=== PATIENT | female | born 1935 | race Caucasian/White ===

== ENCOUNTER 2020-11-11 14:05 | Emergency (ER) | payer MEDICARE ==
[~2020-11-11] VITALS: Ht 154.9 cm; Wt 113.4 kg
[~2020-11-11 14:05] MED LIST: ASPI325EC PO; Aspir 8181 MG PO; CLOP75 PO; ESCI20 PO; FLUO20; FLUO20 PO; FURO20 PO; HYDACE5 PO; HYDACE5325 PO; HYDCHL25 PO; KETO10 PO; LOVA20; Lopressor PO; METO50 PO; METO50ER; OXYACE5T PO; OXYC10ER PO; Omeprazole20 M1; POTCHL10ER PO; POTCHL20ER; POTCHL20ER PO; RXHYD5325 PO; SIMV40 PO; TRIHYD253A PO; TRIHYD253B; VALS80 PO
[2020-11-11] MEDS ORDERED: DONE5 PO (14:17)
[2020-11-11] MEDS ORDERED: AMLO5 PO (14:17)
[2020-11-11] MEDS ORDERED: METO25 PO (14:17)
[2020-11-11] MEDS ORDERED: VALSARTAN-HCTZ1 EAC7 PO (14:18)
[2020-11-11] MEDS ORDERED: QUET25 PO (14:18)
[2020-11-11] MEDS ORDERED: ESCI20 PO (14:18)
[2020-11-11] MEDS ORDERED: POTCHL20ER PO (14:18)
[2020-11-11] MEDS ORDERED: CLOP75 PO (14:19)
[2020-11-11] MEDS ORDERED: FURO40 PO (14:19)
[2020-11-11] MEDS ORDERED: Ativan1 MG PO (14:19)
[2020-11-11] MEDS ORDERED: ALPR.25 PO (14:19)
[2020-11-11] MEDS ORDERED: OMEP20ER PO (14:20)
[2020-11-11] MEDS ORDERED: ASPI81CH PO (14:20)
[2020-11-11] MEDS ORDERED: ALLERCLEAR10 MG PO (14:21)
[2020-11-11 15:42] LABS: Source, Urine Clean Catch
[2020-11-11 15:50] LABS: Appearance, Urine Clear (Clear); Bilirubin, Urine Neg (Neg); Blood, Urine Neg (Neg); Color, Urine Yellow (P-Yellow); Glucose Qualitative, Urine Neg (Neg); Ketones, Urine Neg (Neg); Leukocyte Esterase, Urine 1+ (Neg); Nitrite, Urine Neg (Neg); Protein, Urine Neg (Neg); Urobilinogen, Urine NORM (Normal)
[2020-11-11 15:59] LABS: Bacteria Few /hpf; Red Blood Cells, Urine 0-2 /hpf (0-2); Squamous Epithelial Cells Rare /hpf (Few)
[2020-11-11 16:00] LABS: Amorphous Light (0-Heavy); Renal Epithelial Rare /hpf (0-Rare); Transitional Epithelial Cells Rare /hpf (0-Rare)
[2020-11-11 17:02] LABS: BASOPHILS ABSOLUTE AUTO 0.06 K/mm3 (0.00-0.23); BASOPHILS PERCENT AUTO 1 % (0-2); EOSINOPHILS ABSOLUTE AUTO 0.13 K/mm3 (0.00-0.68); EOSINOPHILS PERCENT AUTO 1 % (0-6); Hematocrit 34.9 % (33.0-51.0); Hemoglobin 11.7 g/dL (11.5-16.0); IMMATURE GRAN ABSOLUTE AUTO 0.04 K/mm3 (0.00-0.10); IMMATURE GRAN PERCENT AUTO 0 % (0-1); LYMPHOCYTES ABSOLUTE AUTO 2.47 K/mm3 (0.84-5.20); LYMPHOCYTES PERCENT AUTO 27 % (21-46); MONOCYTES ABSOLUTE AUTO 0.68 K/mm3 (0.16-1.47); MONOCYTES PERCENT AUTO 7 % (4-13); Mean Corpuscular HGB 33.1 pg (26.0-34.0); Mean Corpuscular HGB Conc 33.5 g/dL (31.5-36.5); Mean Corpuscular Volume 99 fL (80-100); Mean Platelet Volume 10.5 fL (9.1-12.4); NEUTROPHILS PERCENT AUTO 63 % (41-73); Platelet Count 247 K/mm3 (150-400); RDW Coefficient Variation 13.4 % (11.7-14.2); RDW Standard Deviation 48.7 fL (35.1-46.3); Red Blood Cell Count 3.54 M/mm3 (3.80-5.20); White Blood Cell Count 9.18 K/mm3 (4.00-11.30)
[2020-11-11 17:16] LABS: Albumin, Blood 3.9 g/dL (3.4-5.0); Bun/Creatinine Ratio 19.5 (12.0-20.0); Creatinine, Blood 1.49 mg/dL (0.40-1.00); Globulin, Blood 3.9 g/dL (2.2-4.0); Potassium, Blood 4.3 mmol/L (3.5-5.5); Total Protein, Blood 7.8 g/dL (6.4-8.2)
[2020-11-11] MEDS ORDERED: AMOCLA875 PO (19:18)
[2020-11-11] MEDS ORDERED: Norco 5-325 Ta1 EACH PO (19:18)
== END 2020-11-11 19:55 | disposition home or self-care (01) ==
LOC: ER 14:05
PROVIDERS: Physician Assistant
DX: K57.92 Diverticulitis of intestine, part unspecified, without perforation or abscess without bleeding (principal); I10 Essential (primary) hypertension; E78.5 Hyperlipidemia, unspecified; Z79.899 Other long term (current) drug therapy
CPT/HCPCS: 36415; 73502; 74177; 80053; 81001; 85025; 96374-59; 96375; 99284-25; A9270; J2270; J2405; J3010; Q9967

== ENCOUNTER 2021-01-19 15:59 | Observation (INO) | payer MEDICARE ==
[~2021-01-19] VITALS: Ht 162.6 cm; Wt 121.9 kg
[~2021-01-19 15:59] MED LIST changes: +ALLERCLEAR10 MG PO; +ALPR.25 PO; +AMLO5 PO; +AMOCLA875 PO; +ASPI81CH PO; +Ativan1 MG PO; +DONE5 PO; +FURO40 PO; +METO25 PO; +Norco 5-325 Ta1 EACH PO; +OMEP20ER PO; +QUET25 PO; +VALSARTAN-HCTZ1 EAC7 PO
[2021-01-19 16:31] LABS: BASOPHILS ABSOLUTE AUTO 0.05 K/mm3 (0.00-0.23); BASOPHILS PERCENT AUTO 1 % (0-2); EOSINOPHILS ABSOLUTE AUTO 0.15 K/mm3 (0.00-0.68); EOSINOPHILS PERCENT AUTO 2 % (0-6); Hematocrit 33.8 % (33.0-51.0); Hemoglobin 11.4 g/dL (11.5-16.0); IMMATURE GRAN ABSOLUTE AUTO 0.05 K/mm3 (0.00-0.10); IMMATURE GRAN PERCENT AUTO 1 % (0-1); LYMPHOCYTES ABSOLUTE AUTO 2.81 K/mm3 (0.84-5.20); LYMPHOCYTES PERCENT AUTO 27 % (21-46); MONOCYTES ABSOLUTE AUTO 0.91 K/mm3 (0.16-1.47); MONOCYTES PERCENT AUTO 9 % (4-13); Mean Corpuscular HGB Conc 33.7 g/dL (31.5-36.5); Mean Corpuscular Volume 98 fL (80-100); Mean Platelet Volume 10.2 fL (9.1-12.4); NEUTROPHILS ABSOLUTE AUTO 6.37 K/mm3 (1.96-9.15); NEUTROPHILS PERCENT AUTO 62 % (41-73); Platelet Count 274 K/mm3 (150-400); RDW Coefficient Variation 13.3 % (11.7-14.2); RDW Standard Deviation 48.4 fL (35.1-46.3); Red Blood Cell Count 3.45 M/mm3 (3.80-5.20); White Blood Cell Count 10.34 K/mm3 (4.00-11.30)
[2021-01-19 17:01] LABS: Alanine Aminotransfer (ALT/SGP 24 U/L (12-78); Albumin, Blood 3.3 g/dL (3.4-5.0); Albumin/Globulin Ratio 0.8 (0.8-1.8); Alk Phos 72 U/L (50-136); Anion Gap 8 mmol/L (6-16); Aspartate Aminotrans (AST/SGOT 37 U/L (12-37); Bilirubin, Total 0.6 mg/dL (0.1-1.0); Blood Urea Nitrogen 40 mg/dL (8-24); CO2, Blood 26 mmol/L (21-32); Calcium, Blood 8.7 mg/dL (8.5-10.1); Chloride, Blood 101 mmol/L (98-108); Creatinine, Blood 1.82 mg/dL (0.40-1.00); Globulin, Blood 4.4 g/dL (2.2-4.0); Glomerular Filtration Rate 28 (60-); Glucose, Blood 134 mg/dL (70-99); Magnesium, Blood 2.3 mg/dL (1.6-2.4); Potassium, Blood 4.8 mmol/L (3.5-5.5); Sodium, Blood 135 mmol/L (136-145); Total Protein, Blood 7.7 g/dL (6.4-8.2); Troponin I <0.015 ng/mL (0.000-0.040)
[2021-01-19 21:43] LABS: CHOL/HDL RATIO 7.8; Cholesterol 248 mg/dL (50-200); HDL Cholesterol 32 mg/dL (>39); LDL/HDL RATIO 5.2; Low Density Lipoprotein Chol 167 mg/dL (0-110); Triglycerides 245 mg/dL (30-160); Very Low Density Lipoprot Chol 49 mg/dL (6-32)
--- NOTE | 2021-01-20 04:56 | NUR ---
SUMMARY PT ARRIVED TO FLOOR IN NO DISTRESS. PT DENIES CX PAIN OR SOB. PT IS AOX3, FORGETFUL AT TIMES. PT HAS BEEN SLEEPING W/ CPAP. PT CURRENTLY SLEEPING AND IN NO DISTRESS. CALL LIGHT IN REACH AND BED ALARM ON.
[2021-01-20 06:39] LABS: BASOPHILS ABSOLUTE AUTO 0.05 K/mm3 (0.00-0.23); BASOPHILS PERCENT AUTO 1 % (0-2); EOSINOPHILS ABSOLUTE AUTO 0.23 K/mm3 (0.00-0.68); EOSINOPHILS PERCENT AUTO 3 % (0-6); Hematocrit 32.8 % (33.0-51.0); Hemoglobin 10.9 g/dL (11.5-16.0); IMMATURE GRAN ABSOLUTE AUTO 0.03 K/mm3 (0.00-0.10); IMMATURE GRAN PERCENT AUTO 0 % (0-1); LYMPHOCYTES ABSOLUTE AUTO 3.05 K/mm3 (0.84-5.20); LYMPHOCYTES PERCENT AUTO 37 % (21-46); MONOCYTES ABSOLUTE AUTO 0.79 K/mm3 (0.16-1.47); MONOCYTES PERCENT AUTO 10 % (4-13); Mean Corpuscular HGB Conc 33.2 g/dL (31.5-36.5); Mean Corpuscular Volume 99 fL (80-100); NEUTROPHILS ABSOLUTE AUTO 4.18 K/mm3 (1.96-9.15); NEUTROPHILS PERCENT AUTO 50 % (41-73); Platelet Count 255 K/mm3 (150-400); RDW Coefficient Variation 13.4 % (11.7-14.2); RDW Standard Deviation 48.5 fL (35.1-46.3); White Blood Cell Count 8.33 K/mm3 (4.00-11.30)
[2021-01-20 06:54] LABS: Bun/Creatinine Ratio 21.2 (12.0-20.0); Calcium, Blood 8.5 mg/dL (8.5-10.1); Creatinine, Blood 1.7 mg/dL (0.40-1.00)
--- NOTE | 2021-01-20 17:30 | NUR ---
SHIFT SUMMARY NO ACUTE CHANGES NOTED TO PATIENT THIS SHIFT. PT IS A&OX3, FORGETFUL AT TIMES, ABLE TO MAKE NEEDS KNOWN, PLEASANT AND COOPERATIVE TO CARE. PT IS [place]. NO C/O PAIN OR ANY DISCOMFORT THIS SHIFT. NO C/O CHEST PAIN, SOB, OR N&V. PT ZIOPATCH TO LUCW DISCONTINUED THIS SHIFT ORDERED BY DR. KING. ZIOPATCH GIVEN TO PT's SON TO BE MAILED. PT REQUIRES 1 SBA WITH FWW TO BATHROOM. NO C/O DYSURIA. BED AT LOWEST POSITION W/ ALARM ON FOR SAFETY. CALL LIGHT WITHIN REACH. PT's SON AT BEDSIDE THIS AFTERNOON.
--- NOTE | 2021-01-20 19:30 | NUR ---
ASSUMED CARE. SON AT BEDSIDE. RECEIVED CALL FROM HAND CLOTH CUTTER REPORTING HR 130. PATIENT FOUND LAYING IN BED. JUST GOTTEN UP TO BATHROOM. DENIED ANY CURRENT CHEST PAIN OR SOB. SON REPORTED THAT THESE SYMPTOMS AND IRREGULARITIES HAVE BEEN GOING ON FOR SOME TIME. SHE COULD BE SITTING AND NOT MOVING AT HOME AND HER BLOOD PRESSURE WILL BE NORMAL AND 10 MINUTES LATER IT WILL GO UP INTO THE 200'S. THE SAME GOES FOR HER HR. SHE DOES GET VERY LIGHTHEADED, PALE, AND OCCATIONAL CHEST TIGHTNESS. TELE IS MONITORING FOR CHANGES, SHE WAS IN AFIB LAST NIGHT. SON GIVEN ZIO PATCH TO SEND BACK. PATIENT CURRENTLY BRADICARDIC AT 59. NO EDEMA. BED ALARM PLACED DUE TO HIGH POTTER SCORE. CALL LIGHT IS IN REACH.
--- NOTE | 2021-01-21 03:06 | NUR ---
MERE WOKE UP VERY SCARED AND FRIGHTEN TO THE POINT OF SHAKING AND INCREASE IN BREATHING. DID NOT REMEMBER WHERE SHE WAS AT OR ANYTHING OVER THE LAST DAY. SHE WAS SCREAMING OUT FOR HER SON ISAIAS WHO LEFT EARLIER THIS NIGHT. SHE KEPT ON SAYING "THIS IS NOT REAL, HOW CAN I KNOW THIS IS REAL". CALLED HER SON WHO SHE DID NOT EVEN BELEIVE IT WAS HER SON UNTIL HE TOLD HER SOMETHING ONLY HE COULD KNOW. GOT HER SLIGHTLY CALM BUT HER BP WAS ELEVATED TO THE 160'S DUE TO THIS. SON SAID SHE DOES SUNDOWN BUT NEVER LIKE THIS. HE ASKED ABOUT HER CELEXA DID SHE GET IT BEFORE BED. APPARENTLY IT WAS GIVEN IN THE MORNING, CHANGED THE TIME TO PM PER HIS REQUEST. GAVE HER XANAX TO HELP CALM DOWN. BED ALARM IS ON, WILL CONITNUE TO MONITOR.
--- NOTE | 2021-01-21 06:09 | NUR ---
SHIFT SUMMARY: AOX3 BUT HAS SUNDOWNERS AT NIGHT. WOKE UP COMPLETE CONFUSION, DIDN'T EVEN BELIEVE HER SON WAS HER SON UNTIL HE TOLD HER SOMETHING HE WOULD ONLY KNOW. SHE KEPT THINKING SHE WAS IN A DREAM. DID NOT WEAR HER CPAP LAST NIGHT SATS REMAINED GREATER THAN 90%. BP ALL OVER THE PLACE FROM 112 TO 160'S WITH HR THAT HIT A HIGH OF 130'S DOWN TO LOWS OF HIGH 40'S. SOB WITH EXERTION. DOES HAVE OCCATIONAL TINGLING IN THE LEFT ARM AND HAND. SOME CHEST PRESSURE THAT COMES AND GOES. ALSO REPORTED SOME DIZZINESS. DID GIVE XANAX FOR ANXIETY X1. BED ALARM IS ON, CALL LIGHT IS IN REACH. WILL CONTINUE TO MONITOR.
--- NOTE | 2021-01-21 14:33 | NUR ---
Met pt. in bed resting she repots to be doing much better encouraged pt. and offered prayers
--- NOTE | 2021-01-21 18:44 | NUR ---
PATIENT A/OX2-3 TODAY, PER REPORT DOES GET VERY CONFUSED AT NIGHT. HR UP TO THE 130'S WITH ACTIVITY AND PATIENT REPORTS DIZZINESS AND PAIN IN THE L SIDE OF HER HEAD WITH ACTIVITY. ORHOSTATICS TAKEN AND PRESSURES AND HR WENT UP WITH STANDING. 1ST PART OF STRESS TEST TODAY, 2ND PART WILL BE TOMORROW AT 1000. PATIENT TO BE NPO AT MIDNIGHT EXCEPT WATER. FALL PRECAUTIONS IN PLACE, PATIENT ABLE TO MAKE NEEDS KNOWN. AMBULATES WITH FWW AND 1 ASSIST.
--- NOTE | 2021-01-22 06:30 | NUR ---
SHIFT SUMMARY: CONTINUED TO HAVE IRREGULAR RHYTHEMS LAST NIGHT. HAD TWO EPISODES OF SVT LONGEST WAS 1 MIN. THEN SHE RETURNED TO SINUS OMAIRA. HR BOUNCES FROM RHYTHEM TO RHYTHEM WITH NO CONSISTENCY OR PATTERN. SHE COULD BE LAYING IN BED AND BE 130 BPM THEN 30 SECONDS LATER BE OMAIRA IN THE 50'S. SHE DOES GET TACHY WITH EXERTION. SOB NOTED. LUNGS DIMINISHED. BLOOD PRESSURE IS ALSO INCONSISTENT WITH HIGHS UP TO 180'S THEN A MINUTES LATER BACK DOWN TO 140'S. THERE ARE TIMES SHE HAS SYMPTOMS SUCH LIGHTHEADNESS, FUZZINESS, AND FEELING SOME DECREASE IN SENSATION TO HER LEGS. SHE ALSO HAS NUMBNESS OF THE LEFT HAND THAT COMES AND GOES FREQUENTLY. WILL CONTINUE TO MONITOR. CALL LIGHT IS IN REACH.
--- NOTE | 2021-01-22 17:27 | NUR ---
SHIFT SUMMARY PT A&O X2 PLEASENT AND COOPERATIVE. NO ACUTE CHANGES THIS SHIFT. STRESS TEST COMPLETED. PTS SON IN THIS EVENING- DR BARNHART CAME AND DISCUSSED TEST RESULTS AND PLAN WITH SON AND THE PT. VSS. PTS HR SINUS IN THE 60'S AT THIS TIME. PIPE FITTER SOFT COPPER REPORTS PT WAS TACHY AT 111 AT ONE POINT TODAY WHEN PT GOT UP. PT OOB FOR MEALS. UP 1 ASSIST WITH FWW. OCC INCONT WITH PULLUPS IN PLACE. PLAN: AWAITING CARDIOLOGY RECOMENDATION.
--- NOTE | 2021-01-23 06:27 | NUR ---
SHIFT SUMMARY: PATIENT HAD TWO EPISODES OF SVT RANGING UP TO 120 AND 140 BPM. THIS OCCURRED WHEN SHE WAS RUSHING TO THE BATHROOM. ONCE IN BED IT RESOLVED. NO OTHER EPISODES NOTED. SHE DOES HAVE PANIC ATTACKS THAT CONTRIBUTE TO THE TACHYCARDIA. SLEPT WELL WITH HER CPAP ON. BLOOD PRESSURE WS WNL. NO OTHER CHANGES TO NOTE THIS SHIFT. CALL LIGHT IS IN REACH.
--- NOTE | 2021-01-23 16:30 | NUR ---
SHIFT SUMMARY PT HAVING TACHYCARDIA RANGING FROM 110S-130S TODAY WITH EXERTION. GENERALLY AFTER AMBULATING TO THE BATHROOM AND BACK TO BED. PT RECOVERS QUICKLY AFTER RESTING IN BED. PT STARTED ON AMIODARONE TODAY PER DR. KING'S ORDER. TOLERATING WELL SO FAR WITHOUT SYMPTOMATIC BRADYCARDIA. HR CURRENTLY AT 62 PER BI REPORT DEVELOPER. VS REVIEWED. NO OTHER ACUTE CHANGES IN ASSESSMENT AT THIS TIME. PT RESTING IN BED. CALL LIGHT IN REACH. DENIES OTHER NEEDS AT THIS TIME.
--- NOTE | 2021-01-24 04:27 | NUR ---
SUMMARY PT DENIES CX PAIN OR SOB. PT HAS BEEN SLEEPING W/ CPAP T/O SHIFT. NO NEW ISSUES NOTED. PT WAS NOTED TO BE ST @ 120'S AT BEGINNING OF SHIFT. THIS AM PT IS SB IN 50'S. CALL LIGHT IN REACH AND BED ALARM ON.
--- NOTE | 2021-01-24 16:47 | NUR ---
SHIFT SUMMARY PT CONTINUES TO HAVE TACHYCARDIC EPISODES WITH EXERTION. AVERAGING IN THE 110-120S PER SENIOR ACCOUNT CLERK. RESOLVED WITH REST. NO SIGNS OF SYMPTOMATIC BRADYCARDIA TODAY. PT SHOWERED WITH HELP FROM THE AIDE. NO OTHER ACUTE CHANGES IN ASSESSMENT AT THIS TIME. VS REVIEWED. PT CURRENTLY RESTING IN BED. CALL LIGHT IN REACH. PT TALKING TO FAMILY ON THE PHONE.
--- NOTE | 2021-01-24 18:56 | NUR ---
CHEST PAIN PT STARTED C/O CHEST PAIN AT 1845. PT DESCRIBED THE PAIN 2-3/10. SHARP AT TIMES, BUT MOSTLY DULL. PT STATES PAIN DOES NOT INCREASE WITH MOVEMENT OR BREATHING. PT STATES N/T TO L HAND, BUT ALSO PREVIOUSLY C/O THIS EARLIER IN THE DAY. VITALS TAKEN. MUSICAL INSTRUMENT MECHANIC REPORTED PT WAS IN SINUS AT 68 WITH PVCS. THE PVCS ARE NEW FROM EARLIER TODAY. DR. CANO NOTIFIED. STAT TROPONIN ORDERED.
--- NOTE | 2021-01-24 22:02 | NUR ---
SON VISITING AT , AFFECT SOMEWHAT LABILE, PT VOICED RECENT PASSING OF HER OF 66 YRS. NURSE TALKED WITH PT, PT AFFECT SEEMED TO IMPROVE. WILL CONTINUE TO MONITOR. CALL LIGHT IN REACH
--- NOTE | 2021-01-25 03:45 | NUR ---
ACCOUNTING TUTOR SUMMARY HAS BEEN RESTING QUIETLY WITH FEW INTERRUPTIONS SINCE HS. MED TELE CONTINUES. NO C/O CHEST PAIN OF THIS WRITING. CALL LIGHT IN REACH
[2021-01-25 08:28] LABS: Bun/Creatinine Ratio 23.2 (12.0-20.0); Calcium, Blood 8.7 mg/dL (8.5-10.1); Creatinine, Blood 1.98 mg/dL (0.40-1.00); Potassium, Blood 3.4 mmol/L (3.5-5.5)
--- NOTE | 2021-01-25 16:59 | NUR ---
Shift Summary A/Ox3, occ forgetfulness. Pleasant and cooperative. Spent some time in room with patient reminiscing about her past and her late , patient was very appreciative, tearful, and still grieving about the of her 92 year old who approx. 8 months ago. Up with SBA/FWW to bathroom, calls appropriately for needs. Daughter was at the bedside during visiting hours, updated son via phone. HR per tele runs between 56-108. Denies pain, nausea, vomiting, diarrhea. Appetite is good. No acute changes, WCTM.
--- NOTE | 2021-01-25 22:35 | NUR ---
AWAKE EARLIER. WATCHING TV, DENIED PAIN, NO NOTED ACUTE DISTRESS. CALL LIGHT IN REACH. AFFECT CHEERFUL.
--- NOTE | 2021-01-25 22:51 | NUR ---
MED DERRICK OPERATOR CALLED WITH HR 126. UPON ASSESSMENT IN ROOM, PT UP TO BATHROOM AND A LITTLE "DIZZY". ASSISTED BACK TO BED, INSTRUCTED TO USE CALL LIGHT PRIOR TO ANY MORE OUT OF BED ACTIVITIES. CALL LIGHT IN REACH. TELE BACK DOWN TO SINUS AT 81 AFTERWARDS
--- NOTE | 2021-01-26 04:53 | NUR ---
FIREWORKS INSPECTOR SUMMARY HAS BEEN RESTING QUIETLY WITH FEW INTERRUPTIONS SINCE HS. GLAZE CARRIER REPORTED A QUICK INCREASE HR TO 126 EARLIER, UPON ARRIVEAL/ASSESSMENT WAS FOUND IN BTHROOM WITH SLIGHT "DIZZINESS" AND ASSISTED BACK TO BED. WAS INSTRUCTED TO USE CALL LIGHT PRIOR TO ANY MORE OUT OF BED ACTIVITIES. HAS BEEN RESTING QUIETLY WITH HR IN THE 80'S SINCE. CALL LIGHT IN REACH. NO C/O CP THIS SHIFT
[2021-01-26] MEDS ORDERED: PACERONE100 M1 PO (12:23)
[2021-01-26] MEDS ORDERED: ATOR40TA PO (12:23)
[2021-01-26] MEDS ORDERED: PANTOPRAZOLE SO40 M2 PO (12:24)
[2021-01-26] MEDS ORDERED: METO25ER PO (13:18)
--- NOTE | 2021-01-26 16:20 | NUR ---
Discharge Summary AOx3, forgetful. Discharge to home. Reviewed d/c paperwork with patient and son Regino at bedside. Questions answered to their satisfaction. Copy of d/c papers given. Meds faxed to [facility]. Had issues with getting Amiodarone 400mg filled per [facility], dose changed to 200mg and was resent for approval by insurance. This was accepted. Dr. Hinson gave T.O. to change dose from #30 of 400mg to 200mg. Personal belongings sent home. Escorted by [facility] ARCHITECT via w/c. IV removed, WNL. Medicated x 1 for anxiety this shift. Also c/o burning pain in legs and fearful of falling. 1p SBA with gait and FWW to bathroom. Up in chair for all meals this shift. Patient appears to be more emotional today than yesterday because of health decline. Therapeutic listening and discussion made with patient.
== END 2021-01-26 16:24 | disposition home or self-care (01) ==
LOC: ER 15:59 → MEDS 16:00
PROVIDERS: Internal Medicine; Student in an Organized Health Care Education/Training Program; ADMIT Family Medicine
DX: I49.5 Sick sinus syndrome (principal); I25.10 Atherosclerotic heart disease of native coronary artery without angina pectoris; R79.1 Abnormal coagulation profile; I12.9 Hypertensive chronic kidney disease with stage 1 through stage 4 chronic kidney disease, or unspecified chronic kidney disease; N17.9 Acute kidney failure, unspecified; N18.30 Chronic kidney disease, stage 3 unspecified; E11.22 Type 2 diabetes mellitus with diabetic chronic kidney disease; G47.33 Obstructive sleep apnea (adult) (pediatric); E78.5 Hyperlipidemia, unspecified; F03.90 Unspecified dementia, unspecified severity, without behavioral disturbance, psychotic disturbance, mood disturbance, and anxiety; F41.9 Anxiety disorder, unspecified; F32.9 Major depressive disorder, single episode, unspecified; E87.1 Hypo-osmolality and hyponatremia; K21.9 Gastro-esophageal reflux disease without esophagitis; E66.01 Morbid (severe) obesity due to excess calories; Z68.34 Body mass index [BMI] 34.0-34.9, adult; Z95.5 Presence of coronary angioplasty implant and graft
CPT/HCPCS: 36415; 71045; 78452; 78580; 80048; 80053; 80061; 83735; 83880; 84484; 85025; 85379; 93005; 93010; 93017; 93306; 93970; 94660; 94760; 94762; 96360; 96361; 96372; 99285-25; A9270; A9500; A9540; C9113; G0378; J0706; J1650; J2785; J7030

== ENCOUNTER → 2021-03-05 | Outpatient (CLI) | payer MEDICARE ==
[~2021-03-05] MED LIST changes: +ATOR40TA PO; +METO25ER PO; +PACERONE100 M1 PO; +PANTOPRAZOLE SO40 M2 PO
[2021-03-05 16:27] LABS: Albumin, Blood 3.8 g/dL (3.4-5.0); Anion Gap 5 mmol/L (6-16); Blood Urea Nitrogen 20 mg/dL (8-24); CO2, Blood 29 mmol/L (21-32); Chloride, Blood 106 mmol/L (98-108); Creatinine, Blood 1.43 mg/dL (0.40-1.00); Free Thyroxine 0.92 ng/dL (0.70-1.60); Glomerular Filtration Rate 35 (60-); Glucose, Blood 101 mg/dL (70-99); Phosphorus, Blood 3.6 mg/dL (2.5-4.9); Potassium, Blood 3.9 mmol/L (3.5-5.5); Sodium, Blood 140 mmol/L (136-145)
== END ==
LOC: LAB 10:00 → LAB SHORT 10:00
PROVIDERS: Family Medicine
DX: E03.9 Hypothyroidism, unspecified (principal); N18.4 Chronic kidney disease, stage 4 (severe); R79.89 Other specified abnormal findings of blood chemistry
CPT/HCPCS: 80069; 82533; 84439; 84443; 84481

== ENCOUNTER 2022-03-29 13:09 | Emergency (ER) | payer MEDICARE ==
[~2022-03-29] VITALS: Ht 162.6 cm; Wt 124.7 kg
[~2022-03-29 13:09] MED LIST changes: +CEFD300 PO; +Prozac40 MG PO
[2022-03-29] MEDS ORDERED: CEFDINIR300 M4 PO (13:21)
[2022-03-29 13:51] LABS: BASOPHILS ABSOLUTE AUTO 0.07 K/mm3 (0.00-0.23); BASOPHILS PERCENT AUTO 1 % (0-2); EOSINOPHILS ABSOLUTE AUTO 0.12 K/mm3 (0.00-0.68); EOSINOPHILS PERCENT AUTO 2 % (0-6); Hemoglobin 12.9 g/dL (11.5-16.0); IMMATURE GRAN ABSOLUTE AUTO 0.03 K/mm3 (0.00-0.10); IMMATURE GRAN PERCENT AUTO 0 % (0-1); LYMPHOCYTES ABSOLUTE AUTO 2.27 K/mm3 (0.84-5.20); LYMPHOCYTES PERCENT AUTO 29 % (21-46); MONOCYTES ABSOLUTE AUTO 0.62 K/mm3 (0.16-1.47); MONOCYTES PERCENT AUTO 8 % (4-13); Mean Corpuscular HGB 31.9 pg (26.0-34.0); Mean Corpuscular HGB Conc 33.1 g/dL (31.5-36.5); Mean Corpuscular Volume 97 fL (80-100); Mean Platelet Volume 10.9 fL (9.1-12.4); NEUTROPHILS ABSOLUTE AUTO 4.77 K/mm3 (1.96-9.15); NEUTROPHILS PERCENT AUTO 61 % (41-73); Platelet Count 239 K/mm3 (150-400); RDW Coefficient Variation 14.1 % (11.7-14.2); RDW Standard Deviation 50.4 fL (35.1-46.3); Red Blood Cell Count 4.04 M/mm3 (3.80-5.20); White Blood Cell Count 7.88 K/mm3 (4.00-11.30)
[2022-03-29 14:11] LABS: Albumin, Blood 3.7 g/dL (3.4-5.0); Bilirubin, Total 0.8 mg/dL (0.1-1.0); Bun/Creatinine Ratio 17.7 (12.0-20.0); Calcium, Blood 9.4 mg/dL (8.5-10.1); Creatinine, Blood 1.41 mg/dL (0.40-1.00); Globulin, Blood 3.6 g/dL (2.2-4.0); Potassium, Blood 4.4 mmol/L (3.5-5.5); Total Protein, Blood 7.3 g/dL (6.4-8.2)
[2022-03-29 14:41] LABS: Source, Urine Straight Cath
[2022-03-29 14:44] LABS: Appearance, Urine Clear (Clear); Bilirubin, Urine Neg (Neg); Blood, Urine 5+ (Neg); Color, Urine Yellow (P-Yellow); Glucose Qualitative, Urine Neg (Neg); Ketones, Urine Neg (Neg); Leukocyte Esterase, Urine Neg (Neg); Nitrite, Urine Neg (Neg); Protein, Urine 2+ (Neg); Specific Gravity, Urine 1.015 (1.003-1.022); Urobilinogen, Urine NORM (Normal)
[2022-03-29 14:52] LABS: White Blood Cells, Urine 0-2 /hpf (0-5)
[2022-03-29 14:53] LABS: Bacteria Few /hpf; Red Blood Cells, Urine 25-50 /hpf (0-2); Squamous Epithelial Cells Few /hpf (Few); Transitional Epithelial Cells Rare /hpf (0-Rare)
[2022-03-29 16:15] LABS: Free Thyroxine 1.21 ng/dL (0.70-1.60)
[2022-03-29 16:16] LABS: Thyroid Stimulating Hormone 1.84 uIU/mL (0.360-4.800)
== END 2022-03-29 18:59 | disposition home or self-care (01) ==
LOC: ER 13:09
PROVIDERS: Emergency Medicine
DX: F03.90 Unspecified dementia, unspecified severity, without behavioral disturbance, psychotic disturbance, mood disturbance, and anxiety (principal); R45.1 Restlessness and agitation; I10 Essential (primary) hypertension; E78.5 Hyperlipidemia, unspecified; Z95.5 Presence of coronary angioplasty implant and graft; Z79.899 Other long term (current) drug therapy; Z79.02 Long term (current) use of antithrombotics/antiplatelets
CPT/HCPCS: 36415; 70450; 80053; 81001; 82140; 84439; 84443; 85025

== ENCOUNTER 2022-03-31 20:17 | Inpatient (IN) | payer MEDICARE ==
[~2022-03-31] VITALS: Ht 160 cm; Wt 118.4 kg
[~2022-03-31 20:17] MED LIST changes: +CEFDINIR300 M4 PO
[2022-03-31 23:33] LABS: BASOPHILS ABSOLUTE AUTO 0.08 K/mm3 (0.00-0.23); BASOPHILS PERCENT AUTO 1 % (0-2); EOSINOPHILS ABSOLUTE AUTO 0.15 K/mm3 (0.00-0.68); EOSINOPHILS PERCENT AUTO 1 % (0-6); Hematocrit 37.2 % (33.0-51.0); Hemoglobin 12.2 g/dL (11.5-16.0); IMMATURE GRAN ABSOLUTE AUTO 0.03 K/mm3 (0.00-0.10); IMMATURE GRAN PERCENT AUTO 0 % (0-1); LYMPHOCYTES ABSOLUTE AUTO 2.74 K/mm3 (0.84-5.20); LYMPHOCYTES PERCENT AUTO 25 % (21-46); MONOCYTES ABSOLUTE AUTO 0.86 K/mm3 (0.16-1.47); MONOCYTES PERCENT AUTO 8 % (4-13); Mean Corpuscular HGB 32.2 pg (26.0-34.0); Mean Corpuscular HGB Conc 32.8 g/dL (31.5-36.5); Mean Corpuscular Volume 98 fL (80-100); Mean Platelet Volume 10.3 fL (9.1-12.4); NEUTROPHILS ABSOLUTE AUTO 7.28 K/mm3 (1.96-9.15); NEUTROPHILS PERCENT AUTO 65 % (41-73); Platelet Count 223 K/mm3 (150-400); RDW Coefficient Variation 14.2 % (11.7-14.2); RDW Standard Deviation 51.5 fL (35.1-46.3); Red Blood Cell Count 3.79 M/mm3 (3.80-5.20); White Blood Cell Count 11.14 K/mm3 (4.00-11.30)
[2022-03-31 23:52] LABS: Source, Urine Fem Cath
[2022-03-31 23:57] LABS: Alanine Aminotransfer (ALT/SGP 85 U/L (12-78); Albumin, Blood 3.4 g/dL (3.4-5.0); Alk Phos 71 U/L (50-136); Anion Gap 9 mmol/L (6-16); Aspartate Aminotrans (AST/SGOT 53 U/L (12-37); Bilirubin, Total 0.6 mg/dL (0.1-1.0); Blood Urea Nitrogen 29 mg/dL (8-24); Bun/Creatinine Ratio 18.4 (12.0-20.0); CO2, Blood 27 mmol/L (21-32); Calcium, Blood 8.7 mg/dL (8.5-10.1); Chloride, Blood 107 mmol/L (98-108); Creatinine, Blood 1.58 mg/dL (0.40-1.00); Ethanol (Alcohol), Blood, Med <3 mg/dL; Globulin, Blood 3.5 g/dL (2.2-4.0); Glomerular Filtration Rate 32 (60-); Glucose, Blood 108 mg/dL (70-99); Magnesium, Blood 2.1 mg/dL (1.6-2.4); Potassium, Blood 3.9 mmol/L (3.5-5.5); Salicylate <1.7 mg/dL (2.8-20.0); Sodium, Blood 143 mmol/L (136-145); Total Protein, Blood 6.9 g/dL (6.4-8.2)
[2022-03-31 23:58] LABS: Acetaminophen, Random <2.0 ug/mL (10.0-30.0)
[2022-04-01 00:19] LABS: Appearance, Urine Clear (Clear); Bilirubin, Urine Neg (Neg); Blood, Urine Neg (Neg); Color, Urine Yellow (P-Yellow); Glucose Qualitative, Urine Neg (Neg); Ketones, Urine Neg (Neg); Leukocyte Esterase, Urine Neg (Neg); Nitrite, Urine Neg (Neg); Protein, Urine Neg (Neg); Specific Gravity, Urine 1.015 (1.003-1.022); Urobilinogen, Urine NORM (Normal)
[2022-04-01 00:36] LABS: U Amphetamine Screen Not Detected; U Barbituate Screen Not Detected; U Benzodiazapine Screen DETECTED; U Buprenorphine Screen Not Detected; U Cannabinoids Screen Not Detected; U Cocaine Screen Not Detected; U Methadone Screen Not Detected; U Methamphetamine Screen Not Detected; U Opiates Screen Not Detected; U Oxycodone Screen Not Detected; U Phencyclidine Screen Not Detected; U Propoxyphene Screen Not Detected
--- NOTE | 2022-04-01 18:25 | NUR ---
Shift Summary Arrived from ER around noon. A/O to self, family, and hospital. Extremely forgetful, confused (this is baseline). Denies SI claiming, "I would never do that, I am a Confucianism and it's against my beliefs." Very anxious when son was leaving home to get her CPAP and a pair of discharge clothes. Med rec and history not completed because patient is a poor historian. Son will be bringing in med list and can answer questions for history at that time. RAC IV, saline locked. Easily redirectable. Denies pain. 1p FWW to bedside commode/chair and back to bed.
[2022-04-01] MEDS ORDERED: VALS80 PO (18:44)
[2022-04-01] MEDS ORDERED: DOCU100 PO (18:45)
[2022-04-01] MEDS ORDERED: Cranberry400 MG PO (18:45)
[2022-04-01] MEDS ORDERED: Hair, Skin & N1 EACH PO (18:46)
[2022-04-01] MEDS ORDERED: C COMPLEX1000 M1 PO (18:46)
[2022-04-01] MEDS ORDERED: VITAMIN D5000 UNIT PO (18:46)
[2022-04-01] MEDS ORDERED: Calcium Ascorb500 MG PO (18:47)
[2022-04-01] MEDS ORDERED: MIRALAX1713 PO (18:58)
[2022-04-01] MEDS ORDERED: METAMUCIL POWD798 GM PO (18:59)
--- NOTE | 2022-04-02 06:34 | NUR ---
SUMMARY: PT A/OX2-3, IS PLEASAT AND COOPERATIVE W/CARE AND IS ABLE TO SPECIFY NEEDS. SHE REMAINS ON 2MD HOLD IN MODERATE SI PRECAUTIONS W/1:[address] BUT PT EXPRESSES NO CURRENT SI OR THREAT TO SELF. SHE'S UP W/1PA TO TOILET FOR VOID AND BM THIS AM AND HAD PUREWIC IN PLACE T/O NOCTE FOR FREQ URGE INCONTINENCE. PT'S NOW IN RECLINER AGAIN AND DENIES FEELING NEED FOR PUREWIC WHILE AWAKE. SHE TOLERATES RA AND CPAP AT HS W/SPO2 WNL AND NO S/S RESP DISTRESS. NO ACUTE CHANGES, VSS/AFEBRILE. WCTM AND REPORT TO DAY RN.
--- NOTE | 2022-04-02 10:15 | NUR ---
Spiritual care visit conducted upon receipt of spiritual care referral. Pt immediately tells me about the of her spouse, Ellis. She can't remember when he did but agreed it was in the last 2 yrs. She states that she cries and gets angry about his . She says, "People think I am crazy because I cry and throw fits, but I am gireiving. I'm agry because Ellis is gone and so sad to have to live without him." She states that they had been for 65 yrs and she is thankful for the good memories, the love they had for each other and for the honest and kind person that he was." We talk about grief having it's place but needing to watch it's levels for when it overflows to cause harm to self or others. We explore sources of meaning and value and talk about positive ways to approach the work of bereavement. She talks about having good family support (children; 5 girls and 2 boy) and solid friend support. She shares about how her and Ellis where baptized Mormon. I normalize her grief, encourage self-care and provide therapeutic listening, gentle certified credit counselor, grief support and prayer. Pt responds well and shows signs of elevated hope and catharsis. I will continue to remain available to pt and family.
--- NOTE | 2022-04-02 11:04 | NUR ---
PATIENT ADMITS SHE IS DEPRESSED AND WISHED SHE WERE ALONG WITH HER . NO CURRENT SI. PATIENT IS CALM, TALKATIVE WITH STAFF AND PLEASANT
--- NOTE | 2022-04-02 18:41 | NUR ---
PATIENT IS ALERT. THIS MORNING SHE WAS CALM AND COOPERATIVE WITH CARE AND THIS AFTERNOON SHE BECAME ANXIOUS, CONFUSED AND AGITATED. SHE WAS DENYING SI MOST OF THE SHIFT BUT SHE WAS STATING THAT SHE WANTED TO THIS AFTERNOON. DR. GARDNER NOTIFIED AND HE CALLED DR. WAGGONER WHO THEN ORDERED PRN ATIVAN. THE PATIENT IS CALMING DOWN AT THIS TIME. HER SON HAS BEEN AT THE BEDSIDE. 1:1 SITTER IN THE ROOM WITH THE PATIENT TALKING WITH HER. WILL CONTINUE TO MONITOR
--- NOTE | 2022-04-03 03:59 | NUR ---
SUMMARY: PT A/O TO SELF, FAMILY AND SURROUNDINGS. SHE'S BEEN PLEASANT AND COOPERATIVE W/CARE AND UP W/1PA TO TOILET. PT REMAINS ON 2MD HOLD FOR MODERATE SI W/1:1 SITTER PRESENT BUT HAS EXPRESSED NONE THIS SHIFT AND DENIES INTENTION OF SELF HARM. DC'D PSYCH MEDS D/T POSSIBLE QT PROLONGATION BUT NO ANXIETY OR AGGITATION WAS EXHIBITED THIS SHIFT SO PRN ATIVAN WASN'T NEEDED. PT SLEPT MAJORITY OF SHIFT IN RECLINER AND AWOKE IN GOOD SPIRITS. NO ACUTE CHANGES, VSS/AFEBRILE. PT'S SON HOPES TO DISCUSS CARE PLAN W/ TODAY, WILL ENSURE DAY STAFF HELPS ARRANGE THIS MEETING. WCLINDSAY AND REPORT TO DAY RN.
--- NOTE | 2022-04-03 18:58 | NUR ---
shift summary PT HAS BEEN TEARFUL AND DEPRESSED AFRAID STAFF THINKS SHE CRAZY AND WILL HAVE HER "PUT AWAY." SHE WAS PLACED ON SEROQUEL AND WILL TAKE HER FIRST DOSE THIS EVENING. HOPEFUL THIS WILL IMPROVE SLEEP AND MENTATION. BED IN LOWEST POSITION AND CALL LIGHT IN REACH
--- NOTE | 2022-04-04 07:40 | NUR ---
ALL SOURCE INTELLIGENCE ANALYST SUMMARY MISS SEVERINO WAS POLITE AND COOPERATIVE OVERNIGHT WITH HER CARE. SHE APPEARS TO LONG FOR A LISTENING EAR FOR ANY TIME STAFF CAN GIVE HER TO TELL THEM OF HER LOVE FOR HER RECENTLY LOST ONLY INCIDENT OVERNIGHT WAS WHEN SHE WAS FINISHING IN THE BATHROOM, AND STOOD WITH HER WALKER BEFORE CALLING FOR ASSISTANCE. MERE WAS FRIGHTENED, PALE AND CLAMMY STATING THAT SOON SHE STOOD, SHE FELT LIKE SHE WAS GOING TO PASS OUT. NO CHANGES IN TELE, VS WERE STABLE AT THE TIME. THE EPISODE LASTED FOR 1 - 2 MINUTES BEFORE HER COLOR CAME BACK AND THE CLAMMY SKIN RESOLVED. PATIENT WAS VERY SHAKEN, AND KEPT APOLOGISING AND PROMISED SHE WOULD GET UP BEFORE CALLING AGAIN. SHE SLEPT WELL IN THE RECLINER NEXT TO HER BED WHICH IS WHAT SHE DOES AT HOME
--- NOTE | 2022-04-05 08:14 | NUR ---
WARE CLEANER SUMMARY MERE WAS A LITTLE LESS TEARFUL LAST NIGHT. SHE IS ALERT TO PERSON, PLACE, HER AND MANY MANY MEMORIES OF HER LATE . SHE ASKED SEVERAL TIMES IF I KNEW WHAT SHE DID TO BE IN THE HOSPITAL. 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 ALERT AND COOPERATIVE WITH CARE, PATIENT HAS SEVERE SHORT TERM MEMORY DIFFICULTIES, AND NEEDS FREQUENT RE EDUCATION CHAIR ALARM IN PLACE MERE FORGETS TO CALL, AND ATTEMPTS TO GET UP AND AMBULATE TO THE BATHROOM ALONE. ONCE IN THERE, SHE GETS LIGHTHEADED AND CLAMMY, AND APOLOGIZES, BECAUSE SHE SAYS SHE DIDN'T WANT TO BOTHER US. CAMERA ON FOR PATIENT SAFETY IN ADDITION TO CHAIR ALARM
--- NOTE | 2022-04-05 14:20 | NUR ---
PT DISCHARGED 1410 WITH DC INSTRUCTIONS GIVEN TO THE SON. CALLED DR MAO TO CLARIFY A FEW MED CHANGES. THE LASIX AND KCL WERE LISTED TO STOP. DR MAO STATED THEY WERE NOT ON THE MED REC AND HE DOES WISH FOR THE PT TO CONT THESE MEDS AND HAVE CARDIOLOGY/PCP TO MANAGE THESE MEDS. ALSO CONTINUING THE PLAVIX FOR NOW, DISCUSSED WITH SON TO START ASA, BUT LETTING CARDIO MANAGE THIS MED WELL. ALL LACATIVES AND STOOL SOFTNERS DC'D AND CRANBERRY EXTRACT, DR MAO WISHES FAMILY TO HAVE PCP TO MANAGE ALL THE SUPPLEMENTAL MEDS, DOESN'T THINK THEY WILL HARM PT AND WOULD BE OK TO TAKE. PT DC'D WHEELCHAIR OUT TO PRIVATE CAR. SON HAS HARD SCRIPT FOR XANAX, AWARE TO GIVE HALF TAB PRN. BELONGINGS SENT HOME INCLUDING BIPAP MACHINE FROM HOME.
== END 2022-04-05 14:11 | disposition home or self-care (01) | DRG 884 ==
LOC: ER 20:17 → EOR 20:18 → MEDS 04-01 12:49
PROVIDERS: Student in an Organized Health Care Education/Training Program; ADMIT Family Medicine
DX: F01.51 Vascular dementia, unspecified severity, with behavioral disturbance (principal); R45.851 Suicidal ideations; N39.0 Urinary tract infection, site not specified; I48.91 Unspecified atrial fibrillation; Z51.5 Encounter for palliative care; I12.9 Hypertensive chronic kidney disease with stage 1 through stage 4 chronic kidney disease, or unspecified chronic kidney disease; N18.30 Chronic kidney disease, stage 3 unspecified; E78.00 Pure hypercholesterolemia, unspecified; F41.8 Other specified anxiety disorders; Z66 Do not resuscitate; I25.10 Atherosclerotic heart disease of native coronary artery without angina pectoris; Z96.652 Presence of left artificial knee joint; R94.31 Abnormal electrocardiogram [ECG] [EKG]; Z86.79 Personal history of other diseases of the circulatory system; Z90.49 Acquired absence of other specified parts of digestive tract; Z90.710 Acquired absence of both cervix and uterus; Z98.890 Other specified postprocedural states; Z95.5 Presence of coronary angioplasty implant and graft; Z79.2 Long term (current) use of antibiotics; Z79.01 Long term (current) use of anticoagulants; Z79.02 Long term (current) use of antithrombotics/antiplatelets; Z79.899 Other long term (current) drug therapy
CPT/HCPCS: 36415; 51701; 80053; 81003; 83735; 84484; 85025; 93005; 93010; 96361-59; 96365-59; 96366-59; 96375; 99285-25; A9270; G0378; G0480; J2060; J2550; J3475; J7030

== ENCOUNTER 2022-08-16 12:16 | Emergency (ER) | payer MEDICARE ==
[~2022-08-16] VITALS: Ht 162.6 cm; Wt 99.8 kg
[~2022-08-16 12:16] MED LIST changes: +C COMPLEX1000 M1 PO; +Calcium Ascorb500 MG PO; +Cranberry400 MG PO; +DOCU100 PO; +Hair, Skin & N1 EACH PO; +METAMUCIL POWD798 GM PO; +MIRALAX1713 PO; +VITAMIN D5000 UNIT PO
[2022-08-16 13:03] LABS: BASOPHILS ABSOLUTE AUTO 0.07 K/mm3 (0.00-0.23); BASOPHILS PERCENT AUTO 1 % (0-2); EOSINOPHILS ABSOLUTE AUTO 0.13 K/mm3 (0.00-0.68); EOSINOPHILS PERCENT AUTO 2 % (0-6); Hematocrit 38.5 % (33.0-51.0); Hemoglobin 13.1 g/dL (11.5-16.0); IMMATURE GRAN ABSOLUTE AUTO 0.03 K/mm3 (0.00-0.10); IMMATURE GRAN PERCENT AUTO 0 % (0-1); LYMPHOCYTES ABSOLUTE AUTO 2.51 K/mm3 (0.84-5.20); LYMPHOCYTES PERCENT AUTO 31 % (21-46); MONOCYTES PERCENT AUTO 5 % (4-13); Mean Corpuscular HGB 33.2 pg (26.0-34.0); Mean Corpuscular Volume 98 fL (80-100); Mean Platelet Volume 10.8 fL (9.1-12.4); NEUTROPHILS ABSOLUTE AUTO 4.88 K/mm3 (1.96-9.15); NEUTROPHILS PERCENT AUTO 61 % (41-73); Platelet Count 235 K/mm3 (150-400); RDW Coefficient Variation 13.2 % (11.7-14.2); RDW Standard Deviation 47.9 fL (35.1-46.3); Red Blood Cell Count 3.95 M/mm3 (3.80-5.20); White Blood Cell Count 8.02 K/mm3 (4.00-11.30)
[2022-08-16 13:12] LABS: Albumin, Blood 3.4 g/dL (3.4-5.0); Albumin/Globulin Ratio 0.9 (0.8-1.8); Bilirubin, Total 0.9 mg/dL (0.1-1.0); Bun/Creatinine Ratio 16.5 (12.0-20.0); Creatinine, Blood 1.7 mg/dL (0.40-1.00); Globulin, Blood 3.8 g/dL (2.2-4.0); Potassium, Blood 4.1 mmol/L (3.5-5.5); Total Protein, Blood 7.2 g/dL (6.4-8.2)
[2022-08-16 13:29] LABS: Source, Urine Straight Cath
[2022-08-16 13:44] LABS: Appearance, Urine Clear (Clear); Bilirubin, Urine Neg (Neg); Blood, Urine Neg (Neg); Color, Urine Yellow (P-Yellow); Glucose Qualitative, Urine Neg (Neg); Ketones, Urine Neg (Neg); Leukocyte Esterase, Urine Neg (Neg); Nitrite, Urine Neg (Neg); Protein, Urine Neg (Neg); Urobilinogen, Urine NORM (Normal)
[2022-08-16] MEDS ORDERED: CYCL10 PO (17:23)
== END 2022-08-16 18:13 | disposition home or self-care (01) ==
LOC: ER 12:16
PROVIDERS: Student in an Organized Health Care Education/Training Program
DX: M54.50 Low back pain, unspecified (principal); R10.9 Unspecified abdominal pain; F03.90 Unspecified dementia, unspecified severity, without behavioral disturbance, psychotic disturbance, mood disturbance, and anxiety; I10 Essential (primary) hypertension; Z79.899 Other long term (current) drug therapy
CPT/HCPCS: 36415; 74176; 80053; 81003; 83605; 83690; 85025; A9270; J3010; J7030

== ENCOUNTER → 2023-05-27 | Outpatient (CLI) | payer MEDICARE ==
[~2023-05-27] MED LIST changes: +CYCL10 PO
[2023-05-27 22:25] LABS: Creatinine Urine 67.8 mg/dL (27.00-270.00); Microalbumin, Urine Quant. 15.4 mg/L (0.000-20.000); Protein, Urine Quantitative 9.8 mg/dL (0.0-11.9)
== END ==
LOC: LAB SHORT 10:08 → LAB 10:08
PROVIDERS: Internal Medicine Nephrology
DX: N18.30 Chronic kidney disease, stage 3 unspecified (principal); N25.81 Secondary hyperparathyroidism of renal origin; E55.9 Vitamin D deficiency, unspecified; E78.00 Pure hypercholesterolemia, unspecified; R76.9 Abnormal immunological finding in serum, unspecified; R94.5 Abnormal results of liver function studies; R94.6 Abnormal results of thyroid function studies; D51.8 Other vitamin B12 deficiency anemias; D52.8 Other folate deficiency anemias; D50.9 Iron deficiency anemia, unspecified; D63.1 Anemia in chronic kidney disease
CPT/HCPCS: 81050; 82043; 82570; 84156

== ENCOUNTER → 2023-05-31 | Outpatient (CLI) | payer MEDICARE ==
[2023-06-07 09:08] LABS: M-SPIKE, % Not Observed % (Not Observed); PROTEIN,TOTAL,URINE 4.7 mg/dL (Not Estab.)
== END ==
LOC: LAB 12:12 → LAB SHORT 12:12
PROVIDERS: Internal Medicine Nephrology
DX: N18.30 Chronic kidney disease, stage 3 unspecified (principal); D63.1 Anemia in chronic kidney disease; N25.81 Secondary hyperparathyroidism of renal origin; E55.9 Vitamin D deficiency, unspecified; E78.00 Pure hypercholesterolemia, unspecified; R76.9 Abnormal immunological finding in serum, unspecified; R94.5 Abnormal results of liver function studies; R94.6 Abnormal results of thyroid function studies; D51.8 Other vitamin B12 deficiency anemias; D50.9 Iron deficiency anemia, unspecified
CPT/HCPCS: 84156; 84166; 86335

== ENCOUNTER 2023-07-12 11:56 | Emergency (ER) | payer MEDICARE ==
[~2023-07-12] VITALS: Ht 165.1 cm; Wt 99.8 kg
[2023-07-12] MEDS ORDERED: FUROSEMIDE40 MG PO (13:17)
[2023-07-12 14:19] LABS: Source, Urine Fem Cath
[2023-07-12 14:22] LABS: Appearance, Urine Clear (Clear); Bilirubin, Urine Neg (Neg); Blood, Urine Neg (Neg); Color, Urine Yellow (P-Yellow); Glucose Qualitative, Urine Neg (Neg); Ketones, Urine Neg (Neg); Leukocyte Esterase, Urine 1+ (Neg); Nitrite, Urine Neg (Neg); Protein, Urine Neg (Neg); Specific Gravity, Urine 1.015 (1.003-1.022); Urobilinogen, Urine NORM (Normal)
[2023-07-12 14:36] LABS: BASOPHILS ABSOLUTE AUTO 0.07 K/mm3 (0.00-0.23); BASOPHILS PERCENT AUTO 1 % (0-2); EOSINOPHILS ABSOLUTE AUTO 0.16 K/mm3 (0.00-0.68); EOSINOPHILS PERCENT AUTO 2 % (0-6); Hematocrit 36.5 % (33.0-51.0); Hemoglobin 12.5 g/dL (11.5-16.0); IMMATURE GRAN ABSOLUTE AUTO 0.03 K/mm3 (0.00-0.10); IMMATURE GRAN PERCENT AUTO 0 % (0-1); LYMPHOCYTES ABSOLUTE AUTO 2.62 K/mm3 (0.84-5.20); LYMPHOCYTES PERCENT AUTO 26 % (21-46); MONOCYTES ABSOLUTE AUTO 0.85 K/mm3 (0.16-1.47); MONOCYTES PERCENT AUTO 9 % (4-13); Mean Corpuscular HGB 33.4 pg (26.0-34.0); Mean Corpuscular HGB Conc 34.2 g/dL (31.5-36.5); Mean Corpuscular Volume 98 fL (80-100); Mean Platelet Volume 10.7 fL (9.1-12.4); NEUTROPHILS ABSOLUTE AUTO 6.26 K/mm3 (1.96-9.15); NEUTROPHILS PERCENT AUTO 63 % (41-73); Platelet Count 224 K/mm3 (150-400); RDW Coefficient Variation 13.4 % (11.7-14.2); RDW Standard Deviation 47.8 fL (35.1-46.3); Red Blood Cell Count 3.74 M/mm3 (3.80-5.20); White Blood Cell Count 9.99 K/mm3 (4.00-11.30)
[2023-07-12 14:36] LABS: Bacteria Few /hpf; Red Blood Cells, Urine 0-2 /hpf (0-2); Squamous Epithelial Cells Not Seen /hpf (Few)
[2023-07-12 15:17] LABS: Albumin, Blood 3.8 g/dL (3.4-5.0); Bilirubin, Total 0.8 mg/dL (0.1-1.0); Bun/Creatinine Ratio 20.4 (12.0-20.0); Calcium, Blood 9.1 mg/dL (8.5-10.1); Creatinine, Blood 1.81 mg/dL (0.40-1.00); Potassium, Blood 4.5 mmol/L (3.5-5.5); Total Protein, Blood 7.8 g/dL (6.4-8.2)
[2023-07-12 16:00] VITALS: BP 145/61
== END 2023-07-12 16:17 | disposition home or self-care (01) ==
LOC: ER 11:56
PROVIDERS: Emergency Medicine
DX: B34.8 Other viral infections of unspecified site (principal); R41.82 Altered mental status, unspecified; I10 Essential (primary) hypertension; E78.5 Hyperlipidemia, unspecified; F03.90 Unspecified dementia, unspecified severity, without behavioral disturbance, psychotic disturbance, mood disturbance, and anxiety; I25.10 Atherosclerotic heart disease of native coronary artery without angina pectoris; Z79.02 Long term (current) use of antithrombotics/antiplatelets; Z79.899 Other long term (current) drug therapy
CPT/HCPCS: 71045; 80053; 81001; 85025; 87086; 99285-25; P9612

== ENCOUNTER 2024-01-28 02:57 | Inpatient (IN) | payer MEDICARE ==
[~2024-01-28] VITALS: Ht 170.2 cm; Wt 121.5 kg
[~2024-01-28 02:57] MED LIST changes: +AMIODARONE HCL200 M1 PO; +FUROSEMIDE40 MG PO; -PACERONE100 M1 PO
[2024-01-28 03:51] LABS: Source, Urine Clean Catch
[2024-01-28 03:56] LABS: BASOPHILS ABSOLUTE AUTO 0.06 K/mm3 (0.00-0.23); BASOPHILS PERCENT AUTO 1 % (0-2); EOSINOPHILS ABSOLUTE AUTO 0.11 K/mm3 (0.00-0.68); EOSINOPHILS PERCENT AUTO 1 % (0-6); Hematocrit 35.8 % (33.0-51.0); Hemoglobin 12.2 g/dL (11.5-16.0); IMMATURE GRAN ABSOLUTE AUTO 0.04 K/mm3 (0.00-0.10); IMMATURE GRAN PERCENT AUTO 0 % (0-1); LYMPHOCYTES PERCENT AUTO 20 % (21-46); MONOCYTES ABSOLUTE AUTO 1.29 K/mm3 (0.16-1.47); MONOCYTES PERCENT AUTO 11 % (4-13); Mean Corpuscular HGB 33.3 pg (26.0-34.0); Mean Corpuscular HGB Conc 34.1 g/dL (31.5-36.5); Mean Corpuscular Volume 98 fL (80-100); Mean Platelet Volume 10.8 fL (9.1-12.4); NEUTROPHILS ABSOLUTE AUTO 8.35 K/mm3 (1.96-9.15); NEUTROPHILS PERCENT AUTO 68 % (41-73); Platelet Count 234 K/mm3 (150-400); RDW Coefficient Variation 13.4 % (11.7-14.2); RDW Standard Deviation 48.4 fL (35.1-46.3); Red Blood Cell Count 3.66 M/mm3 (3.80-5.20); White Blood Cell Count 12.25 K/mm3 (4.00-11.30)
[2024-01-28 04:07] LABS: Bilirubin, Urine Neg (Neg); Blood, Urine Neg (Neg); Glucose Qualitative, Urine Neg (Neg); Ketones, Urine Neg (Neg); Leukocyte Esterase, Urine Neg (Neg); Nitrite, Urine Neg (Neg); Protein, Urine Neg (Neg); Urobilinogen, Urine NORM (Normal)
[2024-01-28 04:09] LABS: Albumin, Blood 3.5 g/dL (3.4-5.0); Bilirubin, Total 0.9 mg/dL (0.1-1.0); Bun/Creatinine Ratio 18.9 (12.0-20.0); Calcium, Blood 8.7 mg/dL (8.5-10.1); Creatinine, Blood 1.96 mg/dL (0.40-1.00); Globulin, Blood 3.6 g/dL (2.2-4.0); Potassium, Blood 4.1 mmol/L (3.5-5.5); Total Protein, Blood 7.1 g/dL (6.4-8.2)
[2024-01-28 04:14] LABS: Appearance, Urine Clear (Clear); Color, Urine Yellow (P-Yellow)
[2024-01-28] MEDS ORDERED: Acetaminophen 650 MG Supp PR PRN (04:55)
[2024-01-28] MEDS ORDERED: Acetaminophen 325 MG TABLET PO PRN (04:55)
[2024-01-28] MEDS ORDERED: NS 1,000 ML IV SCH (05:00)
[2024-01-28] MEDS ORDERED: AMLODIPINE BESY10 MG PO (05:15)
[2024-01-28] MEDS ORDERED: VALS80 PO (05:16)
[2024-01-28] MEDS ORDERED: ATOR40TA PO (05:16)
[2024-01-28] MEDS ORDERED: POTCHL20ER PO (05:17)
[2024-01-28] MEDS ORDERED: OMEP20ER PO (05:19)
[2024-01-28] MEDS ORDERED: DOCU100 PO (05:20)
[2024-01-28 06:20] LABS: Influenza A, PCR NEGATIVE (NEGATIVE); Influenza B, PCR NEGATIVE (NEGATIVE); Resp Syncytial Virus, PCR NEGATIVE (NEGATIVE); SARS-Cov-2 (COVID-19) PCR, MMC NEGATIVE (NEGATIVE)
[2024-01-28 06:39] VITALS: BP 167/55
[2024-01-28 08:13] LABS: BASOPHILS ABSOLUTE AUTO 0.06 K/mm3 (0.00-0.23); BASOPHILS PERCENT AUTO 1 % (0-2); EOSINOPHILS ABSOLUTE AUTO 0.07 K/mm3 (0.00-0.68); EOSINOPHILS PERCENT AUTO 1 % (0-6); Hematocrit 34.1 % (33.0-51.0); Hemoglobin 11.2 g/dL (11.5-16.0); IMMATURE GRAN ABSOLUTE AUTO 0.03 K/mm3 (0.00-0.10); IMMATURE GRAN PERCENT AUTO 0 % (0-1); LYMPHOCYTES ABSOLUTE AUTO 2.96 K/mm3 (0.84-5.20); LYMPHOCYTES PERCENT AUTO 26 % (21-46); MONOCYTES ABSOLUTE AUTO 1.07 K/mm3 (0.16-1.47); MONOCYTES PERCENT AUTO 10 % (4-13); Mean Corpuscular HGB 32.5 pg (26.0-34.0); Mean Corpuscular HGB Conc 32.8 g/dL (31.5-36.5); Mean Corpuscular Volume 99 fL (80-100); Mean Platelet Volume 10.9 fL (9.1-12.4); NEUTROPHILS ABSOLUTE AUTO 7.03 K/mm3 (1.96-9.15); NEUTROPHILS PERCENT AUTO 63 % (41-73); Platelet Count 205 K/mm3 (150-400); RDW Coefficient Variation 13.4 % (11.7-14.2); RDW Standard Deviation 47.4 fL (35.1-46.3); Red Blood Cell Count 3.45 M/mm3 (3.80-5.20); White Blood Cell Count 11.22 K/mm3 (4.00-11.30)
[2024-01-28 08:25] VITALS: BP 151/55
[2024-01-28 08:33] LABS: Albumin/Globulin Ratio 0.9 (0.8-1.8); Bilirubin, Total 0.7 mg/dL (0.1-1.0); Bun/Creatinine Ratio 19.8 (12.0-20.0); Calcium, Blood 8.1 mg/dL (8.5-10.1); Creatinine, Blood 1.92 mg/dL (0.40-1.00); Globulin, Blood 3.3 g/dL (2.2-4.0); Potassium, Blood 4.1 mmol/L (3.5-5.5); Total Protein, Blood 6.3 g/dL (6.4-8.2)
[2024-01-28] MEDS ORDERED: CLOP75 PO (13:12)
[2024-01-28] MEDS ORDERED: CRANBERRY500 M1 PO (13:14)
[2024-01-28] MEDS ORDERED: MULVITA PO (13:15)
[2024-01-28] MEDS ORDERED: Vitamin C100 M1 PO (13:15)
[2024-01-28] MEDS ORDERED: ALPR.25 (13:16)
[2024-01-28 14:26] LABS: Bicarbonate Venous 26.2 mmol/L (24.0-30.0); PCO2 Venous 37.1 mmHg (38-42); pH Blood Venous 7.45 (7.34-7.37)
[2024-01-28 15:04] VITALS: BP 150/53
--- NOTE | 2024-01-28 15:19 | NUR ---
MCKINNEY PLACEMENT THIS NURSE WHILE SERVING BREAK NURSE FOR BOOKER MCWILLIAMS BLADDER SCANNED PT TO REVEAL A POST VOID RESIDUAL OF 476ML. PT REFUSED MCKINNEY BUT PTS SON ISAIAS NOTIFIED OF RETENTION AND STATED THAT HIS MOTHER NEEDS THE MCKINNEY AND TO PROCEED WITH PLACEMENT. PLACED AT 1510. PT TOLERATED WELL.
[2024-01-28 15:33] LABS: Source, Urine Foley catheter
[2024-01-28 15:58] LABS: Appearance, Urine Clear (Clear); Bilirubin, Urine Neg (Neg); Blood, Urine Neg (Neg); Color, Urine Yellow (P-Yellow); Glucose Qualitative, Urine Neg (Neg); Ketones, Urine Neg (Neg); Leukocyte Esterase, Urine Neg (Neg); Nitrite, Urine Neg (Neg); Protein, Urine Neg (Neg); Urobilinogen, Urine NORM (Normal)
[2024-01-28] MEDS ORDERED: ALPRAZolam 0.25 MG Tab PO PRN (17:30)
--- NOTE | 2024-01-28 18:07 | NUR ---
"Spiritual care visit | Pt. Request Pt. is sitting up in bed and welcomes my visit Pt. is pleasant. Pts. son is at bedside. Facilitate a life review and Pt. is a member of the [employer] in [place]. Faciitated a life review and considered matters of jovanni and belief. Prayed with the Pt. Both the Pt. and son verbalized gratitude forthe spiritual care visit."
--- NOTE | 2024-01-28 18:40 | NUR ---
SHIFT SUMMARY: PT IS A&OX2-3(SELF, PERSON, PLACE;HOSPITAL) SHE HAS DEMENTIA AND REPEATS HERSELF; SHORT TERM. SHE SLEPT MOST OF THE SHIFT, USING CPAP, MAINTAIN O2 SAT GREATER THAN 92%. SON ISAIAS ALTAMIRANO HAS BEEN IN; ASSISTED IN ASSESSMENT. PATIENT HAD A MCKINNEY PLACED DUE TO RETENTION; DRAINING WELL. USING BEDPAN FOR BM OR BRIEF CHANGES. TRIED GETTING PATIENT UP TO THE BEDSIDE COMMODE TODAY WITH AIRCRAFT INSTRUMENT TESTER AND PATIENT WAS WEAK AND BECAME DIZZY; NEAR SYNCOPAL WHEN SITTING UP(NO EVENTS ON TELE). DEEMED UNSAFE TO GET UP, CALLED DR. MELO NOTIIFED HIM AND PLACED BEDREST ORDER FOR NOW. PATIENT EATING AND DRINKING, CALL LIGHT WITHIN REACH-SHE HASN'T USED, PLAYING ON HER TABLET, SHEA'S POSITION, NO SIGNS OR SYMPTOMS OF DISTRES, PLAN OF CARE ONGOING, PATIENT WISHES TO GO HOME.
[2024-01-28 19:28] VITALS: BP 148/68
[2024-01-28] MEDS ORDERED: AmLODIPine Besylate 5 MG Tab PO SCH (21:00)
[2024-01-28] MEDS ORDERED: QUEtiapine Fumarate 25 MG Tab PO SCH (21:00)
[2024-01-28] MEDS ORDERED: Ascorbic Acid 250 MG Chew PO SCH (21:00)
[2024-01-28] MEDS ORDERED: Losartan Potassium 25 MG Tab PO SCH (21:00)
[2024-01-28] MEDS ORDERED: Multivitamins 1 Tab PO SCH (21:00)
[2024-01-29 02:24] VITALS: BP 152/50
--- NOTE | 2024-01-29 04:37 | NUR ---
SHIFT SUMMARY PATIENT REMAINED ON BR , ALTHOUGH SHE WANTED TO GET UP TO BSC FOR BM.S NO CP BUT DID HAVE C/O BURNING LEGS. TELE SB 57 WITH FIRST DEGREE BLOCK. FAYE PATENT GIVEN PRN XANAX AND TYLENOL
[2024-01-29] MEDS ORDERED: Pantoprazole Sodium 40 MG Tab PO SCH (06:00)
[2024-01-29 06:35] LABS: BASOPHILS ABSOLUTE AUTO 0.06 K/mm3 (0.00-0.23); BASOPHILS PERCENT AUTO 1 % (0-2); EOSINOPHILS ABSOLUTE AUTO 0.25 K/mm3 (0.00-0.68); EOSINOPHILS PERCENT AUTO 2 % (0-6); Hematocrit 33.3 % (33.0-51.0); Hemoglobin 10.9 g/dL (11.5-16.0); IMMATURE GRAN ABSOLUTE AUTO 0.06 K/mm3 (0.00-0.10); IMMATURE GRAN PERCENT AUTO 1 % (0-1); LYMPHOCYTES ABSOLUTE AUTO 3.61 K/mm3 (0.84-5.20); LYMPHOCYTES PERCENT AUTO 33 % (21-46); MONOCYTES ABSOLUTE AUTO 1.08 K/mm3 (0.16-1.47); MONOCYTES PERCENT AUTO 10 % (4-13); Mean Corpuscular HGB 32.3 pg (26.0-34.0); Mean Corpuscular HGB Conc 32.7 g/dL (31.5-36.5); Mean Corpuscular Volume 99 fL (80-100); NEUTROPHILS ABSOLUTE AUTO 6.05 K/mm3 (1.96-9.15); NEUTROPHILS PERCENT AUTO 55 % (41-73); Platelet Count 188 K/mm3 (150-400); RDW Coefficient Variation 13.3 % (11.7-14.2); RDW Standard Deviation 48.4 fL (35.1-46.3); Red Blood Cell Count 3.37 M/mm3 (3.80-5.20); White Blood Cell Count 11.11 K/mm3 (4.00-11.30)
[2024-01-29 07:00] LABS: Anion Gap 9 mmol/L (3-11); Blood Urea Nitrogen 35 mg/dL (8-24); CO2, Blood 26 mmol/L (21-32); Calcium, Blood 8.3 mg/dL (8.5-10.1); Chloride, Blood 112 mmol/L (98-108); Creatinine, Blood 1.67 mg/dL (0.40-1.00); Glomerular Filtration Rate 29 (60-); Glucose, Blood 103 mg/dL (70-99); Phosphorus, Blood 3.2 mg/dL (2.5-4.9); Potassium, Blood 3.8 mmol/L (3.5-5.5); Sodium, Blood 143 mmol/L (136-145)
[2024-01-29 07:23] VITALS: BP 157/49
--- NOTE | 2024-01-29 08:49 | NUR ---
THIS RN COVERING FOR PRIMARY RN FOR BREAK
[2024-01-29] MEDS ORDERED: Docusate Sodium 100 MG Cap PO SCH (09:00)
[2024-01-29] MEDS ORDERED: Enoxaparin 30 MG/0.3 ML SYR SC SCH (09:00)
[2024-01-29] MEDS ORDERED: Cholecalciferol 1000 Unit Tablet (=25MCG) PO SCH (09:00)
[2024-01-29] MEDS ORDERED: Clopidogrel Bisulfate 75 MG Tab PO SCH (09:00)
[2024-01-29] MEDS ORDERED: Amiodarone HCl 200 MG Tab PO SCH (09:00)
[2024-01-29] MEDS ORDERED: Furosemide 40 MG Tab PO SCH (09:00)
[2024-01-29] MEDS ORDERED: Atorvastatin 40 MG Tab PO SCH (09:00)
[2024-01-29] MEDS ORDERED: Cranberry Extract 250MG W/30 MG Vitamin C Tab PO SCH ×2 (09:00)
[2024-01-29 15:09] VITALS: BP 144/67
--- NOTE | 2024-01-29 17:35 | NUR ---
SHIFT SUMMARY: PATIENT APPEARS TO BE FEELING/DOING BETTER TODAY. SHE WAS ABLE TO GET UP TO THE BEDSIDE RECLINER WITH 2 ASSIST TODAY; WEAK CANNOT STAND FOR PROLONGED PERIODS OF TIME. ATTEMPTED TO GET ORTHOSTATIC BLOOD PRESSURE, BUT WAS UNSUCCESSFUL DUE TO PATIENT UNABLE TO STAND LONG ENOUGH TO OBTAIN VITALS. SHE EXPRESSES FEELING WEAK VERSUS DIZZY WITH POSITION CHANGES AND MOVEMENT VERSUS EXPRESSES DIZZINESS AND HAVING A NEAR SYNCOPAL EPISODE YESTERDAY. SHE IS EATING AND DRINKING, MCKINNEY DRAINING, AND HAVING BOWEL MOVEMENTS. NO EVENTS OF TELE AND MAINTAIN O2 SAT GREATER THAN 90% ON ROOMAIR/BIPAP PRN; HASN'T NEEDED TODAY. SHE SEEMS TO FEEL THAT SHE CAN GET UP AND GO; FORGETS LIMITATION; ALARMS SET FOR SAFETY. SHE IS IN BED, SLEEPING, CALL LIGHT WITHIN REACH, NO SIGNS OR SYMPTOMS OF DISTRESS, PLAN OF CARE ONGOING.
[2024-01-29 19:16] VITALS: BP 187/50
[2024-01-29 20:43] VITALS: BP 196/69
--- NOTE | 2024-01-30 04:30 | NUR ---
SHIFT SUMMARY PATIENT SLEPT BETTER TONIGHT, HAD BIPAP ON ALL NIGHT. TELE SB @ 57 WITH BBB.
[2024-01-30 04:50] VITALS: BP 168/58
[2024-01-30 05:15] LABS: BASOPHILS ABSOLUTE AUTO 0.05 K/mm3 (0.00-0.23); BASOPHILS PERCENT AUTO 1 % (0-2); EOSINOPHILS ABSOLUTE AUTO 0.25 K/mm3 (0.00-0.68); EOSINOPHILS PERCENT AUTO 3 % (0-6); Hematocrit 32.7 % (33.0-51.0); Hemoglobin 10.9 g/dL (11.5-16.0); IMMATURE GRAN ABSOLUTE AUTO 0.02 K/mm3 (0.00-0.10); IMMATURE GRAN PERCENT AUTO 0 % (0-1); LYMPHOCYTES ABSOLUTE AUTO 3.29 K/mm3 (0.84-5.20); LYMPHOCYTES PERCENT AUTO 40 % (21-46); MONOCYTES ABSOLUTE AUTO 0.83 K/mm3 (0.16-1.47); MONOCYTES PERCENT AUTO 10 % (4-13); Mean Corpuscular HGB 32.6 pg (26.0-34.0); Mean Corpuscular HGB Conc 33.3 g/dL (31.5-36.5); Mean Corpuscular Volume 98 fL (80-100); Mean Platelet Volume 10.6 fL (9.1-12.4); NEUTROPHILS ABSOLUTE AUTO 3.75 K/mm3 (1.96-9.15); NEUTROPHILS PERCENT AUTO 46 % (41-73); Platelet Count 201 K/mm3 (150-400); RDW Coefficient Variation 13.3 % (11.7-14.2); RDW Standard Deviation 47.6 fL (35.1-46.3); Red Blood Cell Count 3.34 M/mm3 (3.80-5.20); White Blood Cell Count 8.19 K/mm3 (4.00-11.30)
[2024-01-30 05:38] LABS: Anion Gap 9 mmol/L (3-11); Blood Urea Nitrogen 29 mg/dL (8-24); CO2, Blood 26 mmol/L (21-32); Calcium, Blood 8.1 mg/dL (8.5-10.1); Chloride, Blood 113 mmol/L (98-108); Creatinine, Blood 1.71 mg/dL (0.40-1.00); Glomerular Filtration Rate 28 (60-); Glucose, Blood 97 mg/dL (70-99); Phosphorus, Blood 3.8 mg/dL (2.5-4.9); Potassium, Blood 3.8 mmol/L (3.5-5.5); Sodium, Blood 144 mmol/L (136-145)
[2024-01-30 07:28] VITALS: BP 164/44
[2024-01-30 15:23] VITALS: BP 161/56
--- NOTE | 2024-01-30 17:06 | NUR ---
SUMMARY- PT SLEPT ALL DAY UNTIL 1400. CONT PULSE OX 95% ROOM AIR. PT DECLINED BREAKFAST AND LUNCH AND REQUESTED TO BE LEFT ALONE TO REST. AWOKE AT 1400, MCKINNEY CATH CARE AND CHECKED SKIN. HEATED UP LUNCH AND PT ATE A FULL MEAL. PT WAS VERY CONFUSED UPON AWAKENING WITH NO STM, ASKED THE SAME QUESTIONS AGAIN AND AGAIN. PT'S L THIGH EXTREMELY ENLARGED COMPARED TO THE LEFT. DR MELO AWARE. PT STATES SHE IS CONSTANTLY HAVING VERTIGO BUT DENIES NAUSEA. PANUS SKIN CREASE HAS SPLITS IN THE SKIN, CLEANSED AND APPLIED ZINC CREAM. ALSO GLUT CREASE WITH SKIN SPLIT CLEANSED, APPLIED ZINC CREAM. UP IN THE CHAIR 2 PERSON MAX ASSIST TO CHAIR. SON IN TO VISIT. HE SPOKE WITH DR MELO ABOUT SNF VS GOING HOME. WILL DC FAYE AND SEE IF PT ABLE TO VOID. WILL REPORT TO PAULA BARTLETT
[2024-01-30 20:33] VITALS: BP 145/123
[2024-01-30 20:53] VITALS: BP 146/69
--- NOTE | 2024-01-31 05:14 | NUR ---
SHIFT SUMMARY PATIENT SLEPT WELL WITH CPAP. HAD TO WAKE HER AT 0130 FOR BLADDER SCAN, RESULTS OF 328. SHE DOES NOT WANT TO GET UP TO THE BR QUITE YET. WE WILL AROUND 0600ISH/ TELE SR 61 WITH 1ST DEGREE & BBB.
[2024-01-31 05:51] LABS: BASOPHILS ABSOLUTE AUTO 0.06 K/mm3 (0.00-0.23); BASOPHILS PERCENT AUTO 1 % (0-2); EOSINOPHILS ABSOLUTE AUTO 0.25 K/mm3 (0.00-0.68); EOSINOPHILS PERCENT AUTO 3 % (0-6); Hematocrit 34.9 % (33.0-51.0); Hemoglobin 11.8 g/dL (11.5-16.0); IMMATURE GRAN ABSOLUTE AUTO 0.02 K/mm3 (0.00-0.10); IMMATURE GRAN PERCENT AUTO 0 % (0-1); LYMPHOCYTES ABSOLUTE AUTO 3.58 K/mm3 (0.84-5.20); LYMPHOCYTES PERCENT AUTO 40 % (21-46); MONOCYTES ABSOLUTE AUTO 0.83 K/mm3 (0.16-1.47); MONOCYTES PERCENT AUTO 9 % (4-13); Mean Corpuscular HGB 32.6 pg (26.0-34.0); Mean Corpuscular HGB Conc 33.8 g/dL (31.5-36.5); Mean Corpuscular Volume 96 fL (80-100); Mean Platelet Volume 10.7 fL (9.1-12.4); NEUTROPHILS ABSOLUTE AUTO 4.24 K/mm3 (1.96-9.15); NEUTROPHILS PERCENT AUTO 47 % (41-73); Platelet Count 227 K/mm3 (150-400); Red Blood Cell Count 3.62 M/mm3 (3.80-5.20); White Blood Cell Count 8.98 K/mm3 (4.00-11.30)
[2024-01-31 05:54] VITALS: BP 145/52
[2024-01-31 06:22] LABS: Bun/Creatinine Ratio 15.7 (12.0-20.0); Creatinine, Blood 1.91 mg/dL (0.40-1.00); Potassium, Blood 3.5 mmol/L (3.5-5.5)
[2024-01-31 07:30] VITALS: BP 145/57
[2024-01-31] MEDS ORDERED: Potassium Chloride 20 MEQ TabCR PO SCH (09:00)
--- NOTE | 2024-01-31 13:59 | NUR ---
PATIENT ABLE TO VOID AFTER GETTING UP AND AMBULATING. NOT INCONTINENT, JUST NEEDS A REMINDER TO VOID. BLADDER SCANNED PATIENT AFTER 2 VOIDS AND A WALK WITH PT, 406mls. PATIENT'S SON DOES NOT WANT PATIENT TO BE STRAIGHT CATHED SHE IS ABLE TO URINATE AT HOME WITH REMINDERS. REPORTED TO DR. MELO.
[2024-01-31 14:54] VITALS: BP 155/80
--- NOTE | 2024-01-31 16:39 | NUR ---
SHIFT SUMMARY A&OX3, COOPERATIVE, ANXIOUS AT TIMES, SHORT TERM MEMORY. DENIED ANY CP/PRESSURE, HEADACHE, DIZZINESS, OR SOB. REPORTED BURNING SENSATIONS TO BLE. SLIGHT EDEMA TO BLE. PATIENT ABLE TO GET UP AND WALK THE HALLS WITH A WALKER. BLADDER SCANNED PATIENT, POST VOID RESIDUAL >400 TWICE, PATIENT AND FAMILY REFUSED STRAIGHT CATHETERIZATION. PROVIDER NOTIFIED. PATIENT DOING WELL WITH GETTING UP TO VOID AND AMBULATE. SON AT BEDSIDE. BED IN THE LOWEST POSITION. CALL LIGHT WITHIN REACH. PLAN FOR DC HOME WITH HH.
--- NOTE | 2024-01-31 16:50 | NUR ---
Upon receiving a referral for spiritual care, I visited the patient. She tells me about her family, the of her spouse, about her childhood and about her feels as if she is a burden. Patient gets stuck in a conversational loop repeating the same information over and over but is easily redirectible. While we are talking her son Jack comes in and adds more substances and dates and times to his mother's stories. I listen empathically and provide therapeutic listening, highlight the honor and kindness of how they speak to one another, and provide prayer. Patient and Jack responded well and showed signs of being encouraged. I will continue to remain available to patient and family.
--- NOTE | 2024-01-31 21:23 | NUR ---
Pt refused vitals
--- NOTE | 2024-01-31 23:00 | NUR ---
PRIMARY RN HOME SICK, THIS RN TO ASSUME PATIENT CARE.
[2024-02-01 00:05] VITALS: BP 134/43
[2024-02-01 00:12] VITALS: BP 127/44
--- NOTE | 2024-02-01 04:03 | NUR ---
SHIFT SUMMARY. PATIENT RESTING IN BED T/O NIGHT WITH CPAP ON-PATIENT ANXIOUS AND REMOVED CPAP X2; PATIENT EASILY REDIRECTABLE. PATIENT WOKE UP WITH URGE TO URINATE. PATIENT URINATED IN TOILET-UNMEASURED AMOUNT. PATIENT IS PLEASANT AND COOPERATIVE WITH CARE. BED EXIT ALARM ENGAGED FOR PATIENT SAFETY. BED IS LOCKED IN THE LOWEST POSITION WTIH CALL LIGHT IN REACH. CARE IS ONGOING.
[2024-02-01 04:21] VITALS: BP 142/52
[2024-02-01 06:18] LABS: BASOPHILS ABSOLUTE AUTO 0.06 K/mm3 (0.00-0.23); BASOPHILS PERCENT AUTO 1 % (0-2); EOSINOPHILS ABSOLUTE AUTO 0.24 K/mm3 (0.00-0.68); EOSINOPHILS PERCENT AUTO 3 % (0-6); Hematocrit 33.1 % (33.0-51.0); IMMATURE GRAN ABSOLUTE AUTO 0.04 K/mm3 (0.00-0.10); IMMATURE GRAN PERCENT AUTO 0 % (0-1); LYMPHOCYTES PERCENT AUTO 46 % (21-46); MONOCYTES PERCENT AUTO 10 % (4-13); Mean Corpuscular HGB 32.4 pg (26.0-34.0); Mean Corpuscular HGB Conc 33.2 g/dL (31.5-36.5); Mean Corpuscular Volume 97 fL (80-100); NEUTROPHILS ABSOLUTE AUTO 3.66 K/mm3 (1.96-9.15); NEUTROPHILS PERCENT AUTO 40 % (41-73); Platelet Count 227 K/mm3 (150-400); RDW Coefficient Variation 13.1 % (11.7-14.2); RDW Standard Deviation 46.5 fL (35.1-46.3)
[2024-02-01 06:27] LABS: Bun/Creatinine Ratio 15.9 (12.0-20.0); Calcium, Blood 8.1 mg/dL (8.5-10.1); Creatinine, Blood 1.95 mg/dL (0.40-1.00); Potassium, Blood 3.5 mmol/L (3.5-5.5)
[2024-02-01 07:30] VITALS: BP 160/53
--- NOTE | 2024-02-01 14:08 | NUR ---
Spiritual care visit conducted. Patient is sitting on a chair and alert. She is tearful as she tells me that she is sure that her Ellis is in heaven but she is fearful that she is not good enough to get into heaven. I provided scriptures from the Bible that affirm her salvation, not baed on her performance (good or bad) but on the work of Santhosh on the cross. I provided a priestly type prayer after hearing her confession and set her mind at ease. Her son Jack came into visit and also affirmed her right standing with God as well. Patient showed signs of greater peace. I will continue to remain available to patient and family.
--- NOTE | 2024-02-01 16:22 | NUR ---
DISCHARGE SUMMARY: PT DISCHARGED HOME WITH HOME HEALTH. PT VOIDING WITH PVR OF 213. PT DENIES URINARY DISCOMFORT. PT ASSISTED WITH GETTING DRESSED. THERE WAS NO IV PRESENT. PT AND SON ISAIAS EDUCATED ON DISCHARGE MEDICATIONS AND INSTRUCTIONS. WAI ESPARZA V/U. PT BELONGINGS PACKED AND SENT WITH SON. PT ESCORTED TO POV VIA WC.
--- NOTE | 2024-02-03 22:49 | NUR ---
REVIEWED PT'S INFORMATION FOR CURRENT ADMISSION
== END 2024-02-01 15:42 | disposition home health service (06) | DRG 312 ==
LOC: ER 02:57 → MEDS 02:58
PROVIDERS: Emergency Medicine; Family Medicine; ADMIT Student in an Organized Health Care Education/Training Program
DX: R55 Syncope and collapse (principal); J96.01 Acute respiratory failure with hypoxia; N18.4 Chronic kidney disease, stage 4 (severe); E87.20 Acidosis, unspecified; R07.9 Chest pain, unspecified; Z66 Do not resuscitate; Z51.5 Encounter for palliative care; F03.90 Unspecified dementia, unspecified severity, without behavioral disturbance, psychotic disturbance, mood disturbance, and anxiety; E78.5 Hyperlipidemia, unspecified; I25.10 Atherosclerotic heart disease of native coronary artery without angina pectoris; G47.33 Obstructive sleep apnea (adult) (pediatric); F41.9 Anxiety disorder, unspecified; F32.A Depression, unspecified; R00.1 Bradycardia, unspecified; K21.9 Gastro-esophageal reflux disease without esophagitis; R33.9 Retention of urine, unspecified; I12.9 Hypertensive chronic kidney disease with stage 1 through stage 4 chronic kidney disease, or unspecified chronic kidney disease; Z99.89 Dependence on other enabling machines and devices; Z95.5 Presence of coronary angioplasty implant and graft; Z90.49 Acquired absence of other specified parts of digestive tract; Z95.1 Presence of aortocoronary bypass graft; Z98.890 Other specified postprocedural states; Z90.710 Acquired absence of both cervix and uterus; Z79.899 Other long term (current) drug therapy; Z79.01 Long term (current) use of anticoagulants; Z96.659 Presence of unspecified artificial knee joint
CPT/HCPCS: 0241U; 36415; 51702; 71045; 80048; 80053; 80069; 81003; 82803; 82947; 83605; 83735; 84145; 84484; 85025; 85379; 93005; 93010; 93246; 93971; 94660; 94762; 96372; 97110; 97116; 97162; 97165; 97530; 99285-25; A9270; G0378; J1650; J7030

== ENCOUNTER 2024-02-03 16:39 | Inpatient (IN) | payer MEDICARE ==
[~2024-02-03] VITALS: Ht 165.1 cm; Wt 126.2 kg
[~2024-02-03 16:39] MED LIST changes: +ALPR.25; +AMLODIPINE BESY10 MG PO; +CRANBERRY500 M1 PO; +MULVITA PO; +Vitamin C100 M1 PO
[2024-02-03 19:32] LABS: BASOPHILS ABSOLUTE AUTO 0.05 K/mm3 (0.00-0.23); BASOPHILS PERCENT AUTO 1 % (0-2); EOSINOPHILS ABSOLUTE AUTO 0.03 K/mm3 (0.00-0.68); EOSINOPHILS PERCENT AUTO 0 % (0-6); Hematocrit 34.3 % (33.0-51.0); Hemoglobin 11.4 g/dL (11.5-16.0); IMMATURE GRAN ABSOLUTE AUTO 0.09 K/mm3 (0.00-0.10); IMMATURE GRAN PERCENT AUTO 1 % (0-1); LYMPHOCYTES ABSOLUTE AUTO 1.95 K/mm3 (0.84-5.20); LYMPHOCYTES PERCENT AUTO 19 % (21-46); MONOCYTES ABSOLUTE AUTO 1.27 K/mm3 (0.16-1.47); MONOCYTES PERCENT AUTO 12 % (4-13); Mean Corpuscular HGB 32.5 pg (26.0-34.0); Mean Corpuscular HGB Conc 33.2 g/dL (31.5-36.5); Mean Corpuscular Volume 98 fL (80-100); Mean Platelet Volume 10.3 fL (9.1-12.4); NEUTROPHILS ABSOLUTE AUTO 6.95 K/mm3 (1.96-9.15); NEUTROPHILS PERCENT AUTO 67 % (41-73); Platelet Count 246 K/mm3 (150-400); RDW Coefficient Variation 13.9 % (11.7-14.2); RDW Standard Deviation 50.3 fL (35.1-46.3); Red Blood Cell Count 3.51 M/mm3 (3.80-5.20); White Blood Cell Count 10.34 K/mm3 (4.00-11.30)
[2024-02-03 20:00] LABS: Albumin, Blood 3.6 g/dL (3.4-5.0); Albumin/Globulin Ratio 0.9 (0.8-1.8); Bilirubin, Total 0.7 mg/dL (0.1-1.0); Bun/Creatinine Ratio 15.2 (12.0-20.0); Calcium, Blood 8.3 mg/dL (8.5-10.1); Creatinine, Blood 2.04 mg/dL (0.40-1.00); Thyroid Stimulating Hormone 1.81 uIU/mL (0.360-4.800); Total Protein, Blood 7.6 g/dL (6.4-8.2)
[2024-02-03 20:11] LABS: Source, Urine Clean Catch
[2024-02-03 20:15] LABS: Bilirubin, Urine Neg (Neg); Blood, Urine Neg (Neg); Color, Urine Yellow (P-Yellow); Glucose Qualitative, Urine Neg (Neg); Ketones, Urine Neg (Neg); Leukocyte Esterase, Urine Neg (Neg); Nitrite, Urine Neg (Neg); Protein, Urine Neg (Neg); Specific Gravity, Urine 1.015 (1.003-1.022); Urobilinogen, Urine NORM (Normal)
[2024-02-03 20:29] LABS: Amorphous Light (0-Heavy); Appearance, Urine Hazy (Clear); Bacteria Many /hpf; Hyaline Casts 0-2 /lpf (0-2); Mucus Light (0-Heavy); Red Blood Cells, Urine 0-2 /hpf (0-2); Squamous Epithelial Cells Rare /hpf (Few); White Blood Cells, Urine 0-2 /hpf (0-5)
[2024-02-03] MEDS ORDERED: Ondansetron HCl 2 MG / ML 2ML Vial IV PRN (20:50)
[2024-02-03] MEDS ORDERED: Acetaminophen 325 MG TABLET PO PRN (20:55)
[2024-02-03] MEDS ORDERED: Acetaminophen 650 MG Supp PR PRN (20:55)
[2024-02-03] MEDS ORDERED: Melatonin 3 MG Tab PO PRN (20:55)
[2024-02-03] MEDS ORDERED: Albuterol 2.5 MG/3 ML VIAL INH PRN (20:55)
[2024-02-03] MEDS ORDERED: Guaifenesin/Dextromethorphan Syrup 5 ML UDC PO PRN (20:55)
[2024-02-03] MEDS ORDERED: QUEtiapine Fumarate 25 MG Tab PO SCH (21:00)
[2024-02-03] MEDS ORDERED: Ascorbic Acid 250 MG Chew PO SCH (21:00)
[2024-02-03] MEDS ORDERED: Multivitamins 1 Tab PO SCH (21:00)
[2024-02-03] MEDS ORDERED: AmLODIPine Besylate 5 MG Tab PO SCH (21:00)
[2024-02-03] MEDS ORDERED: ALPRAZolam 0.25 MG Tab PO PRN (21:05)
[2024-02-03] MEDS ORDERED: Remdesivir (EUA) 200 MG in NS 250 ML IV ONE (21:15)
[2024-02-03] MEDS ORDERED: PAXLOVID 300-11 EAC1 PO (22:48)
[2024-02-03 23:31] VITALS: BP 166/62
[2024-02-04 05:11] VITALS: BP 119/69
--- NOTE | 2024-02-04 05:27 | NUR ---
END OF SHIFT SUMMARY NEW ADMIT FOR NEAR SYNCOPE, COVID. PT LETHARGIC. AWAKENS TO VERBAL STIMULI BUT FALLS ASLEEP DURING CONVERSATION. SLIGHTLY MORE ALERT THIS AM. PT ORIENTED TO PERSON, PLACE. PER SON AT BEDSIDE WHO RESIDES WITH PT, PT BASELINE IS A&OX2-3 WITH SHORT TERM MEMORY LOSS AND REPETETIVE QUESTION/CONVO. PT ALSO AMBULATES WITH WALKER AT BASELINE HOWEVER TOO WEAK AND LETHARGIC TO ATTEMPT AT THIS TIME. PT REMAINS NPO UNTIL SWALLOW EVAL CAN BE COMLETED HOWEVER UNABLE TO ATTEMPT DUE TO CURRENT CONDITION. PER PT SON, PT FEEDS SELF BUT HAS HX OF CHOKING ON LARGE SOLID FOODS, REQUIRING HE PERFORM HEIMLICH MANEUVER. PUREWICK IN PLACE, PT HAS MIXED CONTINENCE AT BASELINE.
[2024-02-04] MEDS ORDERED: Omeprazole 20 MG CapCR PO SCH (06:00)
[2024-02-04 06:19] LABS: BASOPHILS ABSOLUTE AUTO 0.04 K/mm3 (0.00-0.23); BASOPHILS PERCENT AUTO 1 % (0-2); EOSINOPHILS ABSOLUTE AUTO 0.04 K/mm3 (0.00-0.68); EOSINOPHILS PERCENT AUTO 1 % (0-6); Hemoglobin 11.3 g/dL (11.5-16.0); IMMATURE GRAN ABSOLUTE AUTO 0.07 K/mm3 (0.00-0.10); IMMATURE GRAN PERCENT AUTO 1 % (0-1); LYMPHOCYTES ABSOLUTE AUTO 2.53 K/mm3 (0.84-5.20); LYMPHOCYTES PERCENT AUTO 30 % (21-46); MONOCYTES ABSOLUTE AUTO 1.46 K/mm3 (0.16-1.47); MONOCYTES PERCENT AUTO 17 % (4-13); Mean Corpuscular HGB 33.1 pg (26.0-34.0); Mean Corpuscular HGB Conc 33.2 g/dL (31.5-36.5); Mean Corpuscular Volume 100 fL (80-100); Mean Platelet Volume 10.6 fL (9.1-12.4); NEUTROPHILS ABSOLUTE AUTO 4.23 K/mm3 (1.96-9.15); NEUTROPHILS PERCENT AUTO 51 % (41-73); Platelet Count 230 K/mm3 (150-400); RDW Coefficient Variation 13.8 % (11.7-14.2); RDW Standard Deviation 51.4 fL (35.1-46.3); Red Blood Cell Count 3.41 M/mm3 (3.80-5.20); White Blood Cell Count 8.37 K/mm3 (4.00-11.30)
[2024-02-04 06:43] LABS: Albumin, Blood 3.1 g/dL (3.4-5.0); Albumin/Globulin Ratio 0.8 (0.8-1.8); Bilirubin, Total 0.6 mg/dL (0.1-1.0); Bun/Creatinine Ratio 15.8 (12.0-20.0); Calcium, Blood 8.4 mg/dL (8.5-10.1); Creatinine, Blood 1.83 mg/dL (0.40-1.00); Globulin, Blood 3.7 g/dL (2.2-4.0); Magnesium, Blood 2.3 mg/dL (1.6-2.4); Potassium, Blood 3.5 mmol/L (3.5-5.5); Total Protein, Blood 6.8 g/dL (6.4-8.2)
[2024-02-04 08:15] VITALS: BP 148/47
[2024-02-04] MEDS ORDERED: Furosemide 40 MG Tab PO SCH (09:00)
[2024-02-04] MEDS ORDERED: Cholecalciferol 1000 Unit Tablet (=25MCG) PO SCH (09:00)
[2024-02-04] MEDS ORDERED: Amiodarone HCl 200 MG Tab PO SCH (09:00)
[2024-02-04] MEDS ORDERED: Atorvastatin 40 MG Tab PO SCH (09:00)
[2024-02-04] MEDS ORDERED: Docusate Sodium 100 MG Cap PO SCH (09:00)
[2024-02-04] MEDS ORDERED: Cranberry Extract 250MG W/30 MG Vitamin C Tab PO SCH (09:00)
[2024-02-04] MEDS ORDERED: Potassium Chloride 20 MEQ TabCR PO SCH (09:00)
[2024-02-04] MEDS ORDERED: Enoxaparin 30 MG/0.3 ML SYR SC SCH (09:00)
[2024-02-04] MEDS ORDERED: Remdesivir (EUA) 100 MG in NS 250 ML IV SCH (12:00)
[2024-02-04 16:31] VITALS: BP 164/55
--- NOTE | 2024-02-04 18:49 | NUR ---
SHIFT SUMMARY PATIENT A/OX2 2-3 THROUGHOUT THE SHIFT. MCKINNEY CATH IN PLACE DRAINING PROPERLY, NO CONCERNS. PHYSICAL THERAPY ASSESSED PATIENT, 2 EXTENSIVE ASSIST WHEN PATIETN WS DROWSY. LATER IN THE DAY PATIENT AMBULATED TO BATHROOM WITH TWO STAFF MEMBERS WITH MINIMAL ASSISTANCE. 2L NASAL CANNULA SUPPLEMENTAL OXYGEN, SPO2 WNL WHEN PATIENT AWAKE ON ROOM AIR. PATIENT HAD SPEECH THERAPY ASSESSMENT TODAY, PILLS IN APPLESAUCE. REDNESS TO GROIN AND UNDER BREASTS NOTED, BLANCHABLE. PATIENT'S SON INVOLVED AND REQUESTING UPDATES FROM NURSING STAFF DAILY, HE UNABLE TO VISIT HE IS POSITIVE FOR COVID WELL. NO OTHER CONCERNS AT THIS TIME.
[2024-02-04 20:48] VITALS: BP 167/40
[2024-02-05 02:37] VITALS: BP 168/52
--- NOTE | 2024-02-05 07:40 | NUR ---
SHIFT SUMMARY. PATIENT IS A&O2-3 WITH INCREASED CONFUSION AT NIGHT. PATIENT RESTING TONIGHT WITH RESPIRATIONS EQUAL AND UNLABORED. PATIENT USING 2L'S O2 AT NIGHT VIA NASAL CANNULA; PATIENT USES CPAP AT HOME AT BASE. PATIENT IN ISOLATION FOR COVID +. PATIENT HAS MCKINNEY CATHETER THAT IS PATIENT AND DRAINING TO GRAVITY. NO ACUTE CHANGES NOTED THIS SHIFT. BED IS LOCKED IN THE LOWEST POSITION WITH CALL LIGHT IN REACH. REPORT GIVEN TO DAYSHIFT NURSE.
[2024-02-05 08:15] VITALS: BP 146/51
[2024-02-05 16:00] VITALS: BP 164/51
--- NOTE | 2024-02-05 19:33 | NUR ---
DAY SHIFT SUMMARY: A&Ox3-4. PLEASANT AND COOPERATIVE WITH CARE. DARIANA sung FWW. MCKINNEY PATENT AND DRAINING TO GRAVITY. VERY TIRED AND SLEPT MOST OF DAY. BiOx IN PLACE. BM x2 TODAY. NO ACUTE CONCERNS. BED IN LOWEST POSITION. CALL LIGHT WITHIN REACH. ALL NEEDS MET. REPORT TO ONCOMING RN.
[2024-02-05 20:54] VITALS: BP 160/66
[2024-02-06 02:35] VITALS: BP 168/58
--- NOTE | 2024-02-06 05:03 | NUR ---
SHIFT SUMMARY ADMITTED FOR SYNCOPE. DNR CODE. ENHANCED PRECAUTIONS FOR COVID+. PLAN IS FOR REMDESIVIR. HOME O2 EVAL BEFORE RETURNING HOME W/HH WHEN READY FOR DC. PHYSICAL AND SPEECH THERAPIES ASSISTING. MCKINNEY IN PLACE FOR RETENTION. MINCED MOIST DIET. SHE IS IMPULSIVE AND ATTEMPTS TO EXIT THE BED WITHOUT CALLING. BED ALARM IS ACTIVE. 1 ASSIST W/FWW -BRP. URINE CULTURES SHOW UTI. SHE LIVES WITH HER SON AND SHE HAS CAREGIVERS, ALL ARE CURRENTLY POSITIVE FOR COVID WELL. SHE WAS VERY RECENTLY PREVIOUSLY ADMITTED FOR SYNCOPE AND CHEST PAIN. HX: CKD4, DEMENTIA, CAD.
[2024-02-06 05:40] LABS: Bun/Creatinine Ratio 14.4 (12.0-20.0); Calcium, Blood 7.9 mg/dL (8.5-10.1); Creatinine, Blood 1.94 mg/dL (0.40-1.00); Potassium, Blood 3.6 mmol/L (3.5-5.5)
[2024-02-06 07:40] VITALS: BP 176/49
--- NOTE | 2024-02-06 12:55 | NUR ---
PER DR CANO, PT TO SD TODAY. PT SON STATES HE ABSOLUTELY WILL NOT TAKE HER HOME AND STATES DR. CANO "HAS ANOTHER THING COMING IF HE THINKS SHE'S COMING HOME TODAY." SON AND CAREGIVERS ALL HAVE COVID AND HE IS UNABLE TO CARE FOR. DR. CANO TO BEDSIDE TO DISCUSS WITH SON. SECURITY CALLED DUE TO ESCALATING SITUATION BUT WAS ULTIMATELY NOT NEEDED. REORDERED PT TO EVALUATE PATIENT TO DETERMINE IF APPROPRIATE FOR SNF. PT AMBULATING WITH FRONT-WHEELED WALKER THAT SON BROUGHT IN. IMPULSIVE AND GOT UP TO GO TO THE BATHROOM ON HER OWN. WEAK. UNABLE TO CLEAN HERSELF. CRYING SHE ISN'T ABLE TO. CRYING BECAUSE SHE FEELS LIKE HER SON DOES NOT WANT HER TO GO HOME. SON DOES, JUST AFRAID SHE IS NOT STRONG ENOUGH TO GO HOME. SON MAKING COMMENTS ABOUT "THIS PLACE GOING TO [facility] SINCE THE NEW BENEFITS OFFICER CAME".
[2024-02-06] MEDS ORDERED: Doxycycline Hyclate 100 MG TAB PO SCH (13:00)
[2024-02-06] MEDS ORDERED: DOXY100 PO (13:23)
[2024-02-06] MEDS ORDERED: Q-Tussin100 MG/5 M PO (13:23)
[2024-02-06 14:59] VITALS: BP 169/69
[2024-02-06 19:24] VITALS: BP 120/103
--- NOTE | 2024-02-06 19:55 | NUR ---
A&Ox2-3 SELF AND PERSON. WAS TO DC HOME TODAY BUT SON WAS ADAMATE SHE WAS NOT READY TO GO HOME. IN ADDITION, THEY DO NOT HAVE THE MEANS TO CARE FOR HER HE HAS COVID, SHE HAS COVID AND SO DO HER CAREGIVERS AND THEY'RE UNABLE TO GET ANYONE ELSE IN BECAUSE OF THEIR COVID STATUS. AMBULATES 1PA c FWW AND IS UNSTEADY; REPORTEDLY STEAD ON HER FEET AT HOME. VERY TEARFUL AND EASILY FRUSTRATED TODAY. DOES NOT CALL FOR ASSISTANCE AND IMPULSIVELY TIRES TO GET OUT OF BED. BED ALARM ACTIVATED. MCKINNEY PULLED WITH SUCCESSFUL POST-MCKINNEY VOID. BM TODAY. PT RE-EVAL DONE AND RECOMMENDED SNF FOR REHAB UNTIL STRONGER. AWAITING PLACEMENT. BED IN LOWEST POSITION. CALL LIGHT WITHIN REACH. ALL NEEDS MET. REPORT TO ONCOMING RN.
[2024-02-07 02:22] VITALS: BP 152/55
--- NOTE | 2024-02-07 05:06 | NUR ---
SUMMARY: PT A/OX2 BUT FORGETFULL AT TIMES W/IMPULSIVITY AND UNSTEADY GAIT. SHE REMAINS IN COVID ISOLATION ON RA DURING DAY BUT CPAP AT HS. PT REQ'D 3L O2 BLEED IN WHILE ASLEEP FOR DESAT TO 84%. OTHERWISE NO S/S RESP DISTRESS AND ONLY AN OCC DRY FAIRGROUND OPERATOR COUGH WAS OBSERVED. SHE'S 1PA W/FWW TO TOILET TO VOID AND ATTENDS CHANGED FOR OCC.URGE INCONTINENCE. NO ACUTE CHANGES, VSS/AFEBRILE. WCTM AND REPORT TO DAY RN.
[2024-02-07 08:11] VITALS: BP 159/56
--- NOTE | 2024-02-07 09:00 | NUR ---
Pt laying in bed with cpap in place, she is awake so removed it for her, she was able to take her po meds whole with applesauce without diff, a/ox3, forgetful, lungs are clear in upper wong, dim in bases, resp even and unlabored, occ cough noted, on r/a, hrr, no edema noted, ppp+1, cap refill <3sec, vs stable, afebrile, no iv, btx4, abd flat soft nontender, voids via bathroom but has pullups in place, skin c/w/d, maew, shaan, call light in reach.
[2024-02-07] MEDS ORDERED: CLOP75 PO (15:49)
--- NOTE | 2024-02-07 16:23 | NUR ---
Pt has been discharged to home with homehealth, spoke with son about discharge and instructions, faxed new meds to [facility] pharmacy, no iv to remove, pt wanting to go home, son states she looks better today, and he's ok to take her home. was not stable enough to go home yesterday. left via wheelchair with hydraulic jack mechanic in attendence.
== END 2024-02-07 16:35 | disposition home health service (06) | DRG 177 ==
LOC: ER 16:39 → MEDS 16:40 → ENPENDDIS 02-06 10:15 → MEDS 02-07 16:35
PROVIDERS: Emergency Medicine; Internal Medicine; ADMIT Student in an Organized Health Care Education/Training Program
PROC: XW033E5 Introduction of Remdesivir Anti-infective into Peripheral Vein, Percutaneous Approach, New Technology Group 5 (ICD-10-PCS; principal; 2024-02-04)
PROC: 5A09357 Assistance with Respiratory Ventilation, Less than 24 Consecutive Hours, Continuous Positive Airway Pressure (ICD-10-PCS; 2024-02-04)
DX: U07.1 COVID-19 (principal); J96.01 Acute respiratory failure with hypoxia; N18.4 Chronic kidney disease, stage 4 (severe); N39.0 Urinary tract infection, site not specified; F03.90 Unspecified dementia, unspecified severity, without behavioral disturbance, psychotic disturbance, mood disturbance, and anxiety; Z66 Do not resuscitate; K21.9 Gastro-esophageal reflux disease without esophagitis; I12.9 Hypertensive chronic kidney disease with stage 1 through stage 4 chronic kidney disease, or unspecified chronic kidney disease; G47.33 Obstructive sleep apnea (adult) (pediatric); I49.5 Sick sinus syndrome; E78.5 Hyperlipidemia, unspecified; I25.10 Atherosclerotic heart disease of native coronary artery without angina pectoris; F41.9 Anxiety disorder, unspecified; F32.A Depression, unspecified; R55 Syncope and collapse; B95.2 Enterococcus as the cause of diseases classified elsewhere; Z79.899 Other long term (current) drug therapy; Z79.01 Long term (current) use of anticoagulants; Z95.5 Presence of coronary angioplasty implant and graft; Z99.89 Dependence on other enabling machines and devices; Z90.49 Acquired absence of other specified parts of digestive tract; Z98.890 Other specified postprocedural states; Z90.710 Acquired absence of both cervix and uterus
CPT/HCPCS: 36415; 51701; 51702; 71045; 80048; 80053; 81001; 82947; 83605; 83735; 84443; 85025; 87077; 87086; 87186; 92610; 93005; 93010; 94761; 94762; 96365-59; 96372; 97110; 97116; 97163; 97530; 99285-25; A9270; G0378; J0248; J1650; J7050

== ENCOUNTER 2024-08-14 13:11 | Emergency (ER) | payer MEDICARE ==
[~2024-08-14] VITALS: Ht 160 cm; Wt 117.9 kg
[~2024-08-14 13:11] MED LIST changes: +DOXY100 PO; +PAXLOVID 300-11 EAC1 PO; +Q-Tussin100 MG/5 M PO
[2024-08-14 14:22] LABS: BASOPHILS ABSOLUTE AUTO 0.09 K/mm3 (0.00-0.23); BASOPHILS PERCENT AUTO 1 % (0-2); EOSINOPHILS ABSOLUTE AUTO 0.18 K/mm3 (0.00-0.68); EOSINOPHILS PERCENT AUTO 2 % (0-6); Hematocrit 39.5 % (33.0-51.0); Hemoglobin 13.7 g/dL (11.5-16.0); IMMATURE GRAN ABSOLUTE AUTO 0.04 K/mm3 (0.00-0.10); IMMATURE GRAN PERCENT AUTO 0 % (0-1); LYMPHOCYTES ABSOLUTE AUTO 2.85 K/mm3 (0.84-5.20); LYMPHOCYTES PERCENT AUTO 26 % (21-46); MONOCYTES ABSOLUTE AUTO 0.68 K/mm3 (0.16-1.47); MONOCYTES PERCENT AUTO 6 % (4-13); Mean Corpuscular HGB 33.3 pg (26.0-34.0); Mean Corpuscular HGB Conc 34.7 g/dL (31.5-36.5); Mean Corpuscular Volume 96 fL (80-100); Mean Platelet Volume 11.7 fL (9.1-12.4); NEUTROPHILS ABSOLUTE AUTO 7.13 K/mm3 (1.96-9.15); NEUTROPHILS PERCENT AUTO 65 % (41-73); Platelet Count 243 K/mm3 (150-400); RDW Coefficient Variation 13.7 % (11.7-14.2); RDW Standard Deviation 48.6 fL (35.1-46.3); Red Blood Cell Count 4.11 M/mm3 (3.80-5.20); White Blood Cell Count 10.97 K/mm3 (4.00-11.30)
[2024-08-14 14:50] LABS: Albumin, Blood 4.2 g/dL (3.4-5.0); Albumin/Globulin Ratio 0.9 (0.8-1.8); Bilirubin, Total 0.8 mg/dL (0.1-1.0); Bun/Creatinine Ratio 17.6 (12.0-20.0); Calcium, Blood 9.6 mg/dL (8.5-10.1); Creatinine, Blood 1.76 mg/dL (0.40-1.00); Globulin, Blood 4.5 g/dL (2.2-4.0); Potassium, Blood 4.7 mmol/L (3.5-5.5); Total Protein, Blood 8.7 g/dL (6.4-8.2)
[2024-08-14] MEDS ORDERED: TraMADol HCl 50 MG Tab PO ONE (15:00)
[2024-08-14] MEDS ORDERED: Lidocaine 4% 1 Patch TOP ONE (15:00)
[2024-08-14 15:24] LABS: Source, Urine Clean Catch
[2024-08-14 15:33] LABS: Appearance, Urine Clear (Clear); Bilirubin, Urine Neg (Neg); Blood, Urine Neg (Neg); Color, Urine Yellow (P-Yellow); Glucose Qualitative, Urine Neg (Neg); Ketones, Urine Neg (Neg); Leukocyte Esterase, Urine 3+ (Neg); Nitrite, Urine Neg (Neg); Protein, Urine Neg (Neg); Specific Gravity, Urine 1.015 (1.003-1.022); Urobilinogen, Urine NORM (Normal)
[2024-08-14 15:52] LABS: Hyaline Casts 0-2 /lpf (0-2)
[2024-08-14 15:53] LABS: Bacteria Mod /hpf; Red Blood Cells, Urine 0-2 /hpf (0-2); Squamous Epithelial Cells Few /hpf (Few)
[2024-08-14 16:04] VITALS: BP 160/60
[2024-08-14] MEDS ORDERED: LIDO700A20 TOP (16:17)
[2024-08-14] MEDS ORDERED: TRAM50 PO (16:17)
[2024-08-14] MEDS ORDERED: Dexamethasone Sod Phos 10 MG/ML 1ML VIAL IV ONE (16:20)
== END 2024-08-14 16:47 | disposition home or self-care (01) ==
LOC: ER 13:11
PROVIDERS: Physician Assistant
DX: M54.16 Radiculopathy, lumbar region (principal); I10 Essential (primary) hypertension; E78.5 Hyperlipidemia, unspecified; G47.33 Obstructive sleep apnea (adult) (pediatric); Z79.899 Other long term (current) drug therapy; Z79.02 Long term (current) use of antithrombotics/antiplatelets
CPT/HCPCS: 72100; 80053; 81001; 85025; 87086; 96374; 99283-25; A9270; J1100

== ENCOUNTER → 2025-01-30 | Outpatient (CLI) | payer MEDICARE ==
[~2025-01-30] MED LIST changes: +LIDO700A20 TOP; +TRAM50 PO
[2025-01-30 15:39] LABS: BASOPHILS ABSOLUTE AUTO 0.10 K/mm3 (0.00-0.23); BASOPHILS PERCENT AUTO 1 % (0-2); EOSINOPHILS ABSOLUTE AUTO 0.30 K/mm3 (0.00-0.68); EOSINOPHILS PERCENT AUTO 2 % (0-6); Hematocrit 36.4 % (33.0-51.0); Hemoglobin 11.8 g/dL (11.5-16.0); IMMATURE GRAN ABSOLUTE AUTO 0.08 K/mm3 (0.00-0.10); IMMATURE GRAN PERCENT AUTO 1 % (0-1); LYMPHOCYTES ABSOLUTE AUTO 2.89 K/mm3 (0.84-5.20); LYMPHOCYTES PERCENT AUTO 20 % (21-46); MONOCYTES ABSOLUTE AUTO 1.11 K/mm3 (0.16-1.47); MONOCYTES PERCENT AUTO 8 % (4-13); Mean Corpuscular HGB Conc 32.4 g/dL (31.5-36.5); Mean Corpuscular Volume 101 fL (80-100); NEUTROPHILS ABSOLUTE AUTO 10.35 K/mm3 (1.96-9.15); NEUTROPHILS PERCENT AUTO 70 % (41-73); NRBC ABSOLUTE 0.00 K/mm3 (0.00-0.02); NRBC Auto 0.0 /100 WBC (0.0-0.2); Platelet Count 285 K/mm3 (150-400); RDW Coefficient Variation 13.6 % (11.7-14.2); RDW Standard Deviation 50.5 fL (35.1-46.3)
[2025-01-30 15:55] LABS: Alanine Aminotransfer (ALT/SGP 34.0 U/L (12-78); Albumin, Blood 4.0 g/dL (3.4-5.0); Albumin/Globulin Ratio 0.9 (0.8-1.8); Anion Gap 20.0 mmol/L (3-11); Aspartate Aminotrans (AST/SGOT 31.0 U/L (12-37); Bilirubin, Total 0.6 mg/dL (0.1-1.0); Blood Urea Nitrogen 63.0 mg/dL (8-24); CO2, Blood 22.0 mmol/L (21-32); Calcium, Blood 9.9 mg/dL (8.5-10.1); Chloride, Blood 103.0 mmol/L (98-108); Creatinine, Blood 2.48 mg/dL (0.40-1.00); Globulin, Blood 4.4 g/dL (2.2-4.0); Glucose, Blood 103.0 mg/dL (70-99); Potassium, Blood 5.5 mmol/L (3.5-5.5); Sodium, Blood 139.0 mmol/L (136-145); Total Protein, Blood 8.4 g/dL (6.4-8.2)
== END ==
LOC: LAB SHORT 15:25 → LAB 15:25
PROVIDERS: Family Medicine
DX: Z86.79 Personal history of other diseases of the circulatory system (principal)
CPT/HCPCS: 80053; 83880; 85025

== ENCOUNTER → 2025-04-04 | Outpatient (CLI) | payer MEDICARE ==
[2025-04-04 14:51] LABS: Source, Urine Clean Catch
[2025-04-04 18:43] LABS: Bilirubin, Urine Neg (Neg); Color, Urine Yellow (P-Yellow); Glucose Qualitative, Urine Neg (Neg); Ketones, Urine Neg (Neg); Leukocyte Esterase, Urine Neg (Neg); Protein, Urine 1+ (Neg); Specific Gravity, Urine 1.015 (1.003-1.022); Urobilinogen, Urine NORM (Normal)
== END ==
LOC: LAB 14:22 → LAB SHORT 14:22
PROVIDERS: Internal Medicine Nephrology
DX: N39.0 Urinary tract infection, site not specified (principal)
CPT/HCPCS: 87086

== ENCOUNTER → 2025-07-25 | Outpatient (CLI) | payer MEDICARE ==
[2025-07-25 13:25] LABS: Albumin, Blood 3.4 g/dL (3.4-5.0); Anion Gap 12 mmol/L (3-11); Blood Urea Nitrogen 49 mg/dL (8-24); CO2, Blood 30 mmol/L (21-32); Calcium, Blood 8.9 mg/dL (8.5-10.1); Chloride, Blood 102 mmol/L (98-108); Creatinine, Blood 2.03 mg/dL (0.40-1.00); Glucose, Blood 108 mg/dL (70-99); Phosphorus, Blood 3.8 mg/dL (2.5-4.9); Potassium, Blood 4.0 mmol/L (3.5-5.5); Sodium, Blood 140 mmol/L (136-145)
[2025-07-25 13:46] LABS: Magnesium, Blood 2.5 mg/dL (1.6-2.4); Thyroid Stimulating Hormone 3.66 uIU/mL (0.360-4.800)
== END ==
LOC: LAB SHORT 07:45 → LAB 07:45 → LAB FUT 07-24 08:55
PROVIDERS: Internal Medicine; Internal Medicine Nephrology
DX: N18.30 Chronic kidney disease, stage 3 unspecified (principal); K21.9 Gastro-esophageal reflux disease without esophagitis; E53.8 Deficiency of other specified B group vitamins; R53.83 Other fatigue; D75.1 Secondary polycythemia; N25.81 Secondary hyperparathyroidism of renal origin; E55.9 Vitamin D deficiency, unspecified; E78.00 Pure hypercholesterolemia, unspecified; R76.9 Abnormal immunological finding in serum, unspecified; R94.5 Abnormal results of liver function studies; G60.9 Hereditary and idiopathic neuropathy, unspecified
CPT/HCPCS: 80069; 82607; 82746; 83735; 84443; 85018